=== PATIENT | male | born 1970 | race Caucasian/White ===

== ENCOUNTER → 2019-07-13 | Outpatient (CLI) | payer SELFPAY ==
[2019-07-13 10:06] VITALS: BMI 45.4
[2019-07-13 12:35] LABS: Anion Gap 4 (5-15); BUN 16 mg/dL (7-18); BUN/Creat Ratio 18.1 RATIO (10-20); Chloride 105 mmol/L (98-107); Cholesterol 195 mg/dL (200); Creatinine, Serum 0.88 mg/dL (0.70-1.30); EST Glomerular Filtration Rate 98 mL/min (>60); Est Glom Filt Rate - Afr Amer 118 mL/min (>60); Glucose 139 mg/dL (74-106); High Density Lipoprotein 55 mg/dL; Sodium Level 137 mmol/L (136-145); Thyroid Stim Hormone (TSH) 1.17 uIU/mL (0.358-3.74); Triglycerides 112 mg/dL; Very Low Density Lipoprotein 22 mg/dL (5-40)
[2019-07-13 12:41] LABS: Microalbumin,Random Urine 9.6 mg/L (NO RANGE EST.); Microalbumin:Creatinine Ratio 44.7 mg/g CRE (<30 mg/g CRE)
== END | disposition home or self-care (01) ==
LOC: BIMLAB 10:13
PROVIDERS: PCP Internal Medicine; Referring Provider Nurse Practitioner Family; Visit Provider Nurse Practitioner Family
DX: I10 Essential (primary) hypertension (principal); E11.65 Type 2 diabetes mellitus with hyperglycemia
CPT/HCPCS: 36415; 80048; 80061; 82043; 82570; 84443

== ENCOUNTER → 2020-09-21 09:45 | Outpatient (CLI) | payer BC, SELFPAY ==
[2020-09-21 08:25] VITALS: BMI 45.7
[2020-09-21 12:16] LABS: Absolute Lymphocyte Count 1.91 X10^3/uL (0.83-4.51); Basophil# 0.04 X10^3/uL; Basophil% 0.7 % (0-1); Eosinophil# 0.09 X10^3/uL; Eosinophils% 1.6 % (0-5); Hematocrit 41.9 % (40-54); Hemoglobin 14.1 g/dL (13.0-16.5); Lymphocyte # 1.91 X10^3/ul (4.0); Lymphocyte % 34.8 % (19-41); Mean Corp Hgb Conc 33.7 g/dL (32-36); Mean Corpuscular Hgb 29.2 pg (27.0-32.0); Mean Corpuscular Volume 86.7 fL (80-94); Mean Platelet Vol. 10.6 fl (6.2-12.0); Monocyte# 0.46 X10^3/uL; Monocyte% 8.4 % (0-10); NRBC Flagged by Analyzer 0 % (0-5); Neutrophil # 2.96 X10^3/uL (2.7-7.7); Platelet Count 237 K/mm3 (150-450); RBC Distribution Width CV 12.9 % (11.6-14.6); RBC Distribution Width SD 40.3 fl (35.1-43.9); Red Blood Count 4.83 M/mm3 (4.6-6.2); White Blood Count 5.5 K/mm3 (4.4-11.0)
[2020-09-21 12:42] LABS: ALB/GLOB Ratio 0.8 RATIO (0.9-2.4); AST(SGOT) 55 U/L (15-37); Alanine Aminotransfer ALT/SGPT 117 U/L (16-61); Albumin, Serum 3.9 g/dL (3.2-5.0); Alkaline Phosphatase 97 U/L (45-117); Anion Gap 5 (5-15); BUN 18 mg/dL (7-18); BUN/Creat Ratio 20.3 RATIO (10-20); Calcium,Total 9.5 mg/dL (8.5-10.1); Chloride 101 mmol/L (98-107); Cholesterol 191 mg/dL (200); Creatinine, Serum 0.89 mg/dL (0.70-1.30); EST Glomerular Filtration Rate 97 mL/min (>60); Est Glom Filt Rate - Afr Amer 117 mL/min (>60); Globulin 4.8 g/dL (2.2-4.2); Glucose 166 mg/dL (74-106); High Density Lipoprotein 65 mg/dL; Potassium 3.9 mmol/L (3.5-5.1); Protein, Total 8.7 g/dL (6.4-8.2); Sodium Level 134 mmol/L (136-145); Thyroid Stim Hormone (TSH) 1.21 uIU/mL (0.358-3.74); Triglycerides 121 mg/dL; Very Low Density Lipoprotein 24 mg/dL (5-40)
[2020-09-21 13:15] LABS: Microalbumin,Random Urine 34.4 mg/L (NO RANGE EST.)
[2020-09-22 10:34] LABS: Hepatitis C Antibody Non-Reactive (Nonreactive)
== END ==
PROVIDERS: PCP Internal Medicine; Referring Provider Nurse Practitioner Family; Visit Provider Nurse Practitioner Family
DX: E11.9 Type 2 diabetes mellitus without complications (principal); I10 Essential (primary) hypertension; R79.89 Other specified abnormal findings of blood chemistry
CPT/HCPCS: 36415; 80053; 80061; 82043; 82570; 84443; 85025; 86803

== ENCOUNTER → 2020-09-30 08:47 | Outpatient (CLI) | payer BC, SELFPAY ==
[2020-09-21 08:25] VITALS: BMI 45.7
--- NOTE | 2020-09-30 08:52 | US_ITS ---
EXAM: US ABDOMEN LIMITED, RIGHT UPPER QUADRANT CLINICAL INDICATION: elevated lfts TECHNIQUE: Real-time ultrasound of the right upper quadrant with image documentation. This report was created using [employer] report generation technology. COMPARISON: None. FINDINGS: LIVER: Increased echogenicity of the liver is nonspecific but most commonly associated with hepatic steatosis. No hepatic masses. GALLBLADDER: Unremarkable. No shadowing gallstone. No gallbladder wall thickening is demonstrated. No pericholecystic fluid. Negative sonographic Malik''s sign. COMMON BILE DUCT: Unremarkable as visualized. The proximal common bile duct is within normal limits for the patient''s age. PANCREAS: Unremarkable as visualized. No focal abnormality is demonstrated in the pancreas. No pancreatic ductal dilatation. RIGHT KIDNEY: Unremarkable. There is no hydronephrosis. No shadowing calculus. No focal lesion or perinephric collection is demonstrated. US/Liver IMPRESSION: Increased echogenicity of the liver is nonspecific but most commonly associated with hepatic steatosis. Hepatomegaly. Electronically Signed: Alexandr Mercado MD ([place]) at 15:29 EDT , Service support ,
== END ==
PROVIDERS: PCP Nurse Practitioner Family; Referring Provider Nurse Practitioner Family; Visit Provider Nurse Practitioner Family
DX: R79.89 Other specified abnormal findings of blood chemistry (principal)
CPT/HCPCS: 76705

== ENCOUNTER 2020-11-15 17:36 | Emergency (ER) | payer BC, SELFPAY ==
[2020-11-15 17:37] VITALS: BP 171/100; PULSE 84; RESP 16; TEMP 36.3; O2SAT 97; BMI 45.1
--- NOTE | 2020-11-15 18:21 | CT_ITS ---
INDICATION: Right flank pain EXAMINATION: CT Abdomen And Pelvis W/O Contrast Injection TECHNIQUE: Helically acquired images were obtained of the abdomen and pelvis without the use of IV contrast. A radiation dose optimization technique was used for this scan. Oral contrast: None. COMPARISON: None FINDINGS: Evaluation of the solid organs and vascular structures is limited without intravenous contrast. Visualized lung bases: Bibasilar atelectasis. Liver: Markedly diffusely hypodense consistent with fatty liver. Gallbladder: Unremarkable Spleen: Unremarkable Pancreas: Fatty atrophic changes. Adrenal Glands: Unremarkable Kidneys: Unremarkable Vasculature: Mild scattered aortoiliac atherosclerotic calcifications. GI Tract: Scattered diverticula throughout the colon without evidence of inflammation. The appendix is not visualized. Lymphadenopathy: None Peritoneum: No ascites. Bladder: Unremarkable Reproductive organs: Unremarkable Bones/Soft tissues: Mild scattered degenerative changes of the visualized spine. CT/Abdomen/Pelvis without Cont IMPRESSION: No acute abnormalities in the abdomen or pelvis. Severe hepatic steatosis. Diverticulosis. Electronically Signed: Henry Meza MD at 19:04 EDT Tel , Service support ,
--- NOTE | 2020-11-15 18:21 | EDS_ITS ---
HPI History of Present Illness Chief Complaint: Back Onset/Context/Timing Onset: Days (4) Context: Gradual Onset Timing: Continuous Quality: Sharp Location: Lumbar and - (Right flank) Worsened by: improves with - (Cough, sneezing, deep breathing) Relieved by: Nothing Narrative Narrative: Patient presents with right back and flank pain that has been constant for the past 4 days. Patient states it was worse 3 days ago. Patient states it is sharp and stabbing. Patient states pain is over the right lumbar paraspinal area and right flank area. Patient denies any radiation of the pain. Patient denies any bowel or bladder changes. Patient denies any saddle anesthesia. Patient denies any trauma or injury. Patient states his pain is worse with any cough, sneezing, or deep breathing. [facility] Medical History (Updated 11/15/20 @ 20:[address] Fidencio Gerard DO) Diabetes High blood pressure Home Medications multivitamin 1 cap PO DAILY 06/29/19 [History Last Taken Unknown] dulaglutide 1.5 mg/0.5 mL subcutaneous pen injector 1.5 mg SC QWEEK #6 ml 09/21/20 [Rx Last Taken Unknown] lisinopril 20 mg tablet 20 mg PO QDAY #90 tablet 09/21/20 [Rx Last Taken Unknown] metformin 1,000 mg tablet 1,000 mg PO BID #180 tab 09/21/20 [Rx Last Taken Unknown] hydrocodone-acetaminophen 1 tab PO Q6H PRN PRN 3 Days #10 tablet 11/15/20 [Rx Last Taken Unknown] Allergy/AdvReac Type Severity Reaction Status Date / Time Penicillins Allergy Severe anaphylacti Verified 11/15/20 17:37 c Family History (Updated 09/21/20 @ 08:42 by Sherron Allred) Father Diabetes Mother No problems noted. Social History Smoking Status: Never smoker alcohol intake: never substance use type: does not use what type of physical activity do you participate in: walking frequency: 1-2 times per week ROS ROS ED Constitutional Constitutional ED: Denies chills or fever(s) Eyes Eyes: Denies blurry vision or change in vision ENT ENT ED: Denies rhinorrhea or sore throat Cardiovascular Cardiovascular: Denies chest pain or palpitations Respiratory/Chest Respiratory/Chest: Reports cough; Denies dyspnea Gastrointestinal Gastrointestinal: Denies nausea or vomiting Genitourinary Genitourinary ED: Denies dysuria or hematuria Musculoskeletal Musculoskeletal: Reports back pain; Denies neck pain Integumentary Denies abscess or rash Neurologic Neurologic: Denies headache(s) or weakness Allergic/Immunologic Allergic/Immunologic ED: Denies mouth swelling or urticaria EXAM Physical Exam Const Vital Signs: 11/15/20 17:37 Temperature 97.3 F L Temperature Source Temporal Pulse Rate 84 Respiratory Rate 16 Blood Pressure 171/100 H Blood Pressure Mean 123 Pulse Ox 97 Oxygen Delivery Method Room Air Positive well nourished, well developed and obese General Appearance ED: well developed Nutritional Appearance: obese HEENT Reports moist mucous membranes Neck supple and no JVD Resp normal respiratory effort and clear to auscultation bilaterally Cardio regular rate and regular rhythm GI normal to inspection, nondistended, normoactive bowel sounds, soft to palpation and non-tender Back/Spine Back/Spine Narrative: There is tenderness over the right lumbar paraspinal area. There is also right CVA tenderness. Range of motion was slightly limited in all motions of the lumbar spine secondary to pain. Patient ambulates without difficulty. General Back: CVA tenderness right Psych mental status grossly normal MDM MDM MDM Narrative Medical decision making narrative: CBC was essentially within normal limits. Comprehensive metabolic profile was within normal limits. Urinalysis does not show any evidence of urinary tract infection. CT scan of the abdomen and pelvis was obtained. There is diverticulosis but no evidence of diverticulitis. There is no renal calculus noted. There is no acute intra-abdominal process. This was interpreted by the radiologist and reviewed by myself. Patient was feeling better on reevaluation. Patient was advised of his findings. Patient was instructed to follow-up with his primary care physician in 5 to 7 days. Patient was given a prescription for a short course of [place]. Patient understood and was agreeable with the plan. All questions were answered. Lab Data Attestation: I reviewed the patient's lab results. Labs: Laboratory Results - last 24 hr 11/15/20 11/15/20 11/15/20 18:35 18:39 18:39 WBC 5.0 RBC 4.13 L Hgb 12.2 L Hct 35.3 L MCV 85.5 MCH 29.5 MCHC 34.6 RDW Std Deviation 40.2 RDW Coeff of [place]ziel 13.2 Plt Count 191 MPV 9.6 Immature Gran % (Auto) 0.800 Neut % (Auto) 53.8 Lymph % (Auto) 34.5 [place] % (Auto) 8.5 Eos % (Auto) 1.8 Baso % (Auto) 0.6 Absolute Neuts (auto) 2.7 Absolute Lymphs (auto) 1.71 Nucleated RBC % 0 Sodium 140 Potassium 3.8 Chloride 105 Carbon Dioxide 31.0 Anion Gap 4 L BUN 11 Creatinine 0.84 Estim Creat Clear Calc 102.92 Est GFR (MDRD) Af Amer 125 Est GFR (MDRD) Non-Af 103 BUN/Creatinine Ratio 13.1 Glucose 93 Calcium 9.0 Total Bilirubin 0.60 AST 39 H ALT 69 H Alkaline Phosphatase 76 Total Protein 8.3 H Albumin 3.6 Globulin 4.7 H Albumin/Globulin Ratio 0.8 L Urine Color Yellow Urine Clarity Clear Urine pH 7.0 Ur Specific [place] 1.010 Urine Protein Negative Urine Glucose (UA) Normal Urine Ketones Negative Urine Occult Blood Negative Urine Nitrite Negative Urine Bilirubin Negative Urine Urobilinogen Normal Ur Leukocyte Esterase Negative Urine RBC 0 SEEN Urine WBC 0-5 SEEN Ur Squamous Epith Cells 0 SEEN Urine Bacteria 0 SEEN Urine Mucus 0 SEEN Radiography Diagnostic Testing: Radiology Impression Abdomen/Pelvis CT 11/15/20 18:21 IMPRESSION: No acute abnormalities in the abdomen or pelvis. Severe hepatic steatosis. Diverticulosis. Electronically Signed: Henry Meza MD at 19:04 EDT Tel , Service support , Discharge Plan Triage Chief Complaint: Back ED Provider: Fidencio Gerard Dx/Rx/DC Orders Clinical Impression: Acute right flank pain Instructions: ED Flank Pain, Uncertain Cause Prescriptions: New hydrocodone-acetaminophen [hydrocodone-acetaminophen] 1 TABLET tablet 1 tab PO Q6H PRN PRN (Reason: Pain) 3 Days Qty: 10 RF: 0 No Action multivitamin capsule 1 cap PO DAILY RF: 0 lisinopril 20 mg tablet 20 mg PO QDAY Qty: 90 RF: 1 metformin 1,000 mg tablet 1,000 mg PO BID Qty: 180 RF: 1 Trulicity 1.5 mg/0.5 mL pen injector 1.5 mg SC QWEEK Qty: 6 RF: 1 Primary Care Provider: Ang Epps NP Referrals: Ang Epps NP, [facility] [Primary Care Provider] - 3-5 Days Disposition Disposition: Home, self care Discharge Date/Time: 11/15/20 20:18
[2020-11-15 18:39] LABS: Bacteria 0 SEEN /hpf (None Seen); Mucous, Urine 0 SEEN /hpf (<or=2+); Red Blood Cells-Urine 0 SEEN /hpf (0-5); Squamous Epithelial Cells - UA 0 SEEN /hpf (0-5)
[2020-11-15 18:41] LABS: Color, Urine Yellow (Yellow); Glucose, Dipstick Normal (Normal); Ketone-Dipstick Negative (Negative); Leukocyte Esterase-Dipstick Negative /ul (Negative); Nitrite-Dipstick Negative (Negative); Occult Blood-Urine Negative /ul (Negative); Protein-Dipstick Negative (Negative); Urine Bilirubin Dipstick Negative (Negative); Urine Clarity Clear (Clear); Urine Urobilinogen Normal (Normal)
[2020-11-15 19:03] LABS: Absolute Lymphocyte Count 1.71 X10^3/uL (0.83-4.51); Absolute Neutrophil Count 2.7 X10^3/uL (2.0-7.7); Basophil# 0.03 X10^3/uL; Basophil% 0.6 % (0-1); Eosinophil# 0.09 X10^3/uL; Eosinophils% 1.8 % (0-5); Hematocrit 35.3 % (40-54); Hemoglobin 12.2 g/dL (13.0-16.5); Lymphocyte # 1.71 X10^3/ul (0.83-4.51); Lymphocyte % 34.5 % (19-41); Mean Corp Hgb Conc 34.6 g/dL (32-36); Mean Corpuscular Hgb 29.5 pg (27.0-32.0); Mean Corpuscular Volume 85.5 fL (80-94); Mean Platelet Vol. 9.6 fl (6.2-12.0); Monocyte# 0.42 X10^3/uL; Monocyte% 8.5 % (0-10); NRBC Flagged by Analyzer 0 % (0-5); Neutrophil # 2.67 X10^3/uL (2.7-7.7); Neutrophil % 53.8 % (47-70); Platelet Count 191 K/mm3 (150-450); RBC Distribution Width CV 13.2 % (11.6-14.6); RBC Distribution Width SD 40.2 fl (35.1-43.9); Red Blood Count 4.13 M/mm3 (4.6-6.2)
[2020-11-15 19:07] LABS: ALB/GLOB Ratio 0.8 RATIO (0.9-2.4); AST(SGOT) 39 U/L (15-37); Alanine Aminotransfer ALT/SGPT 69 U/L (16-61); Albumin, Serum 3.6 g/dL (3.2-5.0); Alkaline Phosphatase 76 U/L (45-117); Anion Gap 4 (5-15); BUN 11 mg/dL (7-18); BUN/Creat Ratio 13.1 RATIO (10-20); Chloride 105 mmol/L (98-107); Creatinine, Serum 0.84 mg/dL (0.70-1.30); EST Glomerular Filtration Rate 103 mL/min (>60); Est Glom Filt Rate - Afr Amer 125 mL/min (>60); Estimated Creatinine Clearance 102.92 ml/min; Globulin 4.7 g/dL (2.2-4.2); Glucose 93 mg/dL (74-106); Potassium 3.8 mmol/L (3.5-5.1); Protein, Total 8.3 g/dL (6.4-8.2); Sodium Level 140 mmol/L (136-145)
[2020-11-15 19:18] LABS: White Blood Cells 0-5 SEEN /hpf (0-5)
== END 2020-11-15 20:18 | disposition home or self-care (01) ==
PROVIDERS: Emergency Provider Emergency Medicine; PCP Nurse Practitioner Family
DX: R10.9 Unspecified abdominal pain (principal); E11.9 Type 2 diabetes mellitus without complications; I10 Essential (primary) hypertension; E66.9 Obesity, unspecified; Z79.84 Long term (current) use of oral hypoglycemic drugs; Z79.899 Other long term (current) drug therapy
CPT/HCPCS: 74176; 80053; 81001; 85025; 99283; A4216

== ENCOUNTER 2021-03-12 02:11 | Emergency (ER) | payer BC, SELFPAY ==
[2021-03-12 02:12] VITALS: BP 171/105; PULSE 88; RESP 16; TEMP 36.3; O2SAT 100; BMI 42.5
--- NOTE | 2021-03-12 02:26 | CT_ITS ---
We are attempting to reach an attending provider to discuss findings. An addendum with communication details will be sent when the communication is complete. STUDY: CT ABDOMEN AND PELVIS WITH CONTRAST REASON FOR EXAM: Male, 50 years old. Diverticulitis RADIATION DOSAGE (If Supplied By Facility): CTDIvol = ( 22.07 ) mGy, DLP = ( 1239.20 ) mGycm TECHNIQUE: Transaxial images were obtained from the dome of the diaphragm to the symphysis pubis without oral contrast. IV 100mL Isovue-370 was administered. Sagittal and coronal images were reconstructed. Individualized dose optimization techniques were used for this CT. COMPARISON: November 15, 2020 CT abdomen and pelvis FINDINGS: The visualized lung bases are unremarkable. The visualized portions of the heart are within normal limits. There is decreased attenuation of the liver consistent with steatosis. Normal gallbladder and extrahepatic biliary system. Normal spleen. Normal pancreas. Normal bilateral adrenal glands. Normal right kidney. Normal left kidney. Normal visualized stomach. Normal small intestine. There is moderate stool in the colon. There is diverticulosis without visualized diverticulitis. The appendix is visualized and appears normal. Normal abdominal aorta. Normal inferior vena cava. There few nonspecific subcentimeter mesenteric and peritoneal lymphadenopathy Normal urinary bladder. Normal visualized prostate gland. Normal abdominal wall. There is an abnormal focal erosive appearing lesion within the T11 vertebral body occupying the three fourths of the left side of the vertebral body extending into the left pedicle with an associated soft tissue mass measuring 2.8 x 1.4 cm. There is a suggestion this may be extending into the left neural foramen and canal. There is a subtle focus of low attenuation within the L1 vertebral body suggesting the possibility of further lytic lesions. There are also subtle foci within the pedicles and transverse process. There are age-indeterminate prior fractures of right transverse process at L2 and L3. There is subtle low attenuation within the ileum. There is degenerative change in the thoracic spine. At L1-L2 L2-3 L3-L4 and especially L4-L5 there is moderate neural foramina narrowing. At L4-L5 there is moderate to severe central stenosis. L5-S1 there is moderate neural foraminal narrowing. CT/Abdomen/Pelvis W IV Cont ONLY IMPRESSION: Abnormal lytic lesion within the T11 vertebral body extending into the pedicle with an associated soft tissue mass. There is likely significant left neural foraminal narrowing possible central stenosis. This is very concerning for a focus of metastatic disease. There are focal areas of patchy low attenuation within the L1 vertebral body and also seen within the spinous process at the level of L3. There is indeterminate subtle foci within the ileum. There is multilevel degenerative disc disease. Recommend further evaluation with MRI of the thoracic and lumbar spine with gadolinium.. Hepatic steatosis. Nonspecific bowel gas pattern. Minimal diverticulosis no diverticulitis. Electronically Signed: No Morrow MD at 6:26 EDT Tel , Service support ,
--- NOTE | 2021-03-12 02:28 | EDS_ITS ---
HPI History of Present Illness Chief Complaint: Abd Pain Informant: patient Narrative Narrative: 50-year-old male presents to the emergency department with left lower quadrant abdominal pain. This has been present for 1 week. He tells me he went to the urgent care yesterday believing that he had a abdominal muscle strain and was given a muscle relaxant. He states that that did not help. He states that he now believes he has diverticulitis as he had diverticulitis before. He has never had a colonoscopy. He did not have any perforation or abscess formation on his prior diverticulitis admission. He denies any current fevers. He notes decreased bowel movements. [facility] Medical History (Updated 03/12/21 @ 07:[address] Boni Jarrett DO) Diabetes High blood pressure Home Medications multivitamin 1 cap PO DAILY 06/29/19 [History Last Taken Unknown] dulaglutide 1.5 mg/0.5 mL subcutaneous pen injector 1.5 mg SC QWEEK #6 ml 12/21/20 [Rx Last Taken Unknown] lisinopril 20 mg tablet 20 mg PO QDAY #90 tablet 12/21/20 [Rx Last Taken Unknown] metformin 1,000 mg tablet 1,000 mg PO BID #180 tab 12/21/20 [Rx Last Taken Unknown] chlorzoxazone 500 mg tablet 500 mg PO TID PRN #10 tab 03/11/21 [Rx Last Taken Unknown] Allergy/AdvReac Type Severity Reaction Status Date / Time Penicillins Allergy Severe anaphylacti Verified 03/11/21 10:55 c Family History Father Diabetes Mother No problems noted. Social History Smoking Status: Never smoker alcohol intake: never substance use type: does not use what type of physical activity do you participate in: walking frequency: 1-2 times per week ROS ROS ED Constitutional Constitutional ED: Denies chills or weight loss Eyes Eyes: Denies change in vision or diplopia ENT ENT ED: Denies ear pain, rhinorrhea or sore throat Cardiovascular Cardiovascular: Denies chest pain, orthopnea, palpitations or racing heartbeat Respiratory/Chest Respiratory/Chest: Denies cough, dyspnea or orthopnea Gastrointestinal Gastrointestinal: Reports abdominal pain; Denies diarrhea, nausea or vomiting Genitourinary Genitourinary ED: Denies dysuria, hematuria or urinary frequency Musculoskeletal Musculoskeletal: Denies arthralgias or myalgias Integumentary Denies abscess or rash Neurologic Neurologic: Denies headache(s) or weakness Psychiatric Psychiatric: Denies anxiety, depression, suicidal ideation or suicidal thoughts Endocrine Endocrinology: Denies polydipsia, polyphagia or polyuria Allergic/Immunologic Allergic/Immunologic ED: Denies mouth swelling, tongue swelling or urticaria EXAM Physical Exam Const Vital Signs: 03/12/21 02:12 Temperature 97.4 F L Temperature Source Temporal Pulse Rate 88 Respiratory Rate 16 Blood Pressure 171/105 H Blood Pressure Mean 127 Pulse Ox 100 Positive well nourished, well developed and obese General Appearance ED: well developed Nutritional Appearance: obese HEENT Reports normocephalic, head/scalp atraumatic and moist mucous membranes Eyes PERRL and EOMs intact bilaterally Neck no lymphadenopathy, supple and no JVD Resp normal respiratory effort and clear to auscultation bilaterally Cardio regular rate, regular rhythm and no murmurs GI Palpation: soft and tender LLQ Back/Spine no CVA tenderness and normal ROM Extremity normal to inspection General Extremety ED: Negative for edema General Extremity: Negative for edema Neuro oriented x3 and CN's II-XII intact bilaterally Sensorium / Orientation: alert Motor Exam: strength 5/5 throughout Psych mental status grossly normal Mood & Affect: Negative for depressed or tearful Skin no rashes or lesions noted and no wounds MDM MDM MDM Narrative Medical decision making narrative: Basic blood work is obtained and negative. Urinalysis is essentially negative. CT of the abdomen pelvis was obtained to evaluate for the possibility of diverticulitis. Unfortunately this demonstrated a large lytic lesion at T11 with left neuroforaminal stenosis. Concerning for focus of metastatic disease. There is also some patchy low attenuation with in the L1 vertebral body and within the spinous process of L3. I spoke with the patient and I spoke with MRI and patient will undergo MRI this morning. I will speak with his on-call doctor and refer him onto oncology. Lab Data Attestation: I reviewed the patient's lab results. Labs: Laboratory Results - last 24 hr 03/12/21 03/12/21 03/12/21 02:30 02:30 02:35 WBC 5.1 RBC 4.26 L Hgb 12.7 L Hct 36.7 L MCV 86.2 MCH 29.8 MCHC 34.6 RDW Std Deviation 39.9 RDW Coeff of Uziel 12.9 Plt Count 222 MPV 9.7 Immature Gran % (Auto) 0.400 Neut % (Auto) 52.1 Lymph % (Auto) 37.2 [place] % (Auto) 8.3 Eos % (Auto) 1.6 Baso % (Auto) 0.4 Absolute Neuts (auto) 2.6 Absolute Lymphs (auto) 1.88 Nucleated RBC % 0 Sodium 136 Potassium 4.1 Chloride 104 Carbon Dioxide 25.0 Anion Gap 7 BUN 18 Creatinine 0.92 Estim Creat Clear Calc 93.97 Est GFR (MDRD) Af Amer 111 Est GFR (MDRD) Non-Af 92 BUN/Creatinine Ratio 19.5 Glucose 99 Calcium 9.3 Urine Color Yellow Urine Clarity Clear Urine pH 5.0 Ur Specific [place] 1.020 Urine Protein 30 H Urine Glucose (UA) Normal Urine Ketones Negative Urine Occult Blood Negative Urine Nitrite Negative Urine Bilirubin Negative Urine Urobilinogen Normal Ur Leukocyte Esterase Negative Urine RBC 0 SEEN Urine WBC 0 SEEN Ur Squamous Epith Cells 0 SEEN Urine Bacteria 1+ Urine Mucus 0 SEEN Radiography Diagnostic Testing: Radiology Impression Abdomen/Pelvis CT 03/12/21 02:26 IMPRESSION: Abnormal lytic lesion within the T11 vertebral body extending into the pedicle with an associated soft tissue mass. There is likely significant left neural foraminal narrowing possible central stenosis. This is very concerning for a focus of metastatic disease. There are focal areas of patchy low attenuation within the L1 vertebral body and also seen within the spinous process at the level of L3. There is indeterminate subtle foci within the ileum. There is multilevel degenerative disc disease. Recommend further evaluation with MRI of the thoracic and lumbar spine with gadolinium.. Hepatic steatosis. Nonspecific bowel gas pattern. Minimal diverticulosis no diverticulitis. Electronically Signed: No Morrow MD at 6:26 EDT Tel , Service support , ADDENDUM: 03/12/21 0646 IMPRESSION: Abnormal lytic lesion within the T11 vertebral body extending into the pedicle with an associated soft tissue mass. There is likely significant left neural foraminal narrowing possible central stenosis. This is very concerning for a focus of metastatic disease. There are focal areas of patchy low attenuation within the L1 vertebral body and also seen within the spinous process at the level of L3. There is indeterminate subtle foci within the ileum. There is multilevel degenerative disc disease. Recommend further evaluation with MRI of the thoracic and lumbar spine with gadolinium.. Hepatic steatosis. Nonspecific bowel gas pattern. Minimal diverticulosis no diverticulitis. N.B. : The above Results were Read Back by No Morrow MD to Boni Jarrett;[phone], and understanding confirmed on 03/12/2021 06:39:08 (ET). 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
[2021-03-12 02:41] LABS: Absolute Lymphocyte Count 1.88 X10^3/uL (0.83-4.51); Absolute Neutrophil Count 2.6 X10^3/uL (2.0-7.7); Basophil# 0.02 X10^3/uL; Basophil% 0.4 % (0-1); Eosinophil# 0.08 X10^3/uL; Eosinophils% 1.6 % (0-5); Hematocrit 36.7 % (40-54); Hemoglobin 12.7 g/dL (13.0-16.5); Lymphocyte # 1.88 X10^3/ul (0.83-4.51); Lymphocyte % 37.2 % (19-41); Mean Corp Hgb Conc 34.6 g/dL (32-36); Mean Corpuscular Hgb 29.8 pg (27.0-32.0); Mean Corpuscular Volume 86.2 fL (80-94); Mean Platelet Vol. 9.7 fl (6.2-12.0); Monocyte# 0.42 X10^3/uL; Monocyte% 8.3 % (0-10); NRBC Flagged by Analyzer 0 % (0-5); Neutrophil # 2.64 X10^3/uL (2.7-7.7); Neutrophil % 52.1 % (47-70); Platelet Count 222 K/mm3 (150-450); RBC Distribution Width CV 12.9 % (11.6-14.6); RBC Distribution Width SD 39.9 fl (35.1-43.9); Red Blood Count 4.26 M/mm3 (4.6-6.2); White Blood Count 5.1 K/mm3 (4.4-11.0)
[2021-03-12 03:45] LABS: Anion Gap 7 (5-15); BUN 18 mg/dL (7-18); BUN/Creat Ratio 19.5 RATIO (10-20); Calcium,Total 9.3 mg/dL (8.5-10.1); Chloride 104 mmol/L (98-107); Creatinine, Serum 0.92 mg/dL (0.70-1.30); EST Glomerular Filtration Rate 92 mL/min (>60); Est Glom Filt Rate - Afr Amer 111 mL/min (>60); Estimated Creatinine Clearance 93.97 ml/min; Glucose 99 mg/dL (74-106); Potassium 4.1 mmol/L (3.5-5.1); Sodium Level 136 mmol/L (136-145)
[2021-03-12 04:06] LABS: Mucous, Urine 0 SEEN /hpf (<or=2+); Red Blood Cells-Urine 0 SEEN /hpf (0-5); Squamous Epithelial Cells - UA 0 SEEN /hpf (0-5); White Blood Cells 0 SEEN /hpf (0-5)
[2021-03-12 04:09] LABS: Color, Urine Yellow (Yellow); Glucose, Dipstick Normal (Normal); Ketone-Dipstick Negative (Negative); Leukocyte Esterase-Dipstick Negative /ul (Negative); Nitrite-Dipstick Negative (Negative); Occult Blood-Urine Negative /ul (Negative); Protein-Dipstick 30 mg/dl (Negative); Urine Bilirubin Dipstick Negative (Negative); Urine Clarity Clear (Clear); Urine Urobilinogen Normal (Normal)
[2021-03-12 04:16] LABS: Bacteria 1+ /hpf (None Seen)
--- NOTE | 2021-03-12 07:07 | MRI_ITS ---
We are attempting to reach an attending provider to discuss findings. An addendum with communication details will be sent when the communication is complete. STUDY: MRI THORACIC AND LUMBAR SPINE WITH AND WITHOUT CONTRAST REASON FOR EXAM: Male, 50 years old. T11 mass -- left sided pain, no radiculopathy, F/U CT TECHNIQUE: dotarem 25ml IV was administered for the contrast portion of the examination. Standard precontrast thoracic and lumbar spine images were obtained. COMPARISON: CT scan dated 03/12/2021. FINDINGS: Thoracic spine: Multiple enhancing abnormal T1 and T2 bone lesions predominating at the T11 vertebral body (sagittal image 8 series 5). Additional slightly more prominent enhancing bone lesions involving the T1 vertebral body and T4/T5 posterior elements. Left sided enhancing epidural tumor at the T10 and T11 levels with moderate canal narrowing (axial images 9 through 12 series 7 and sagittal image 7 series 9). Region of epidural tumor measures approximately 4.1 cm x 1 cm x 1.4 cm. No abnormal cord signal. Conus medullaris terminates normally at the L1 level. Thoracic kyphosis maintained. No significant scoliosis. No spondylolisthesis. Multilevel intervertebral disc disease with right paracentral protrusion at T3-4. No significant central canal narrowing secondary to intervertebral disc disease. Severe left-sided T10-11 neural foraminal narrowing with impingement (sagittal image 6 series 4). Paraspinal muscle atrophy. Normal aorta. Normal visualized lungs given MRI technique. Lumbar spine: Multiple enhancing lumbar and sacral bone lesions most pronounced at the right hemisacrum (sagittal image 2 series 2 and axial image 1 series 3). Region of sacral bone tumor measures approximately 3.5 cm x 2.4 cm x 6.4 cm. Lumbar lordosis maintained. No significant scoliosis. Multilevel intervertebral disc disease with central canal narrowing most severe at L4-5. Multilevel neural foraminal narrowing with contact of the left exiting L5 nerve root. Multilevel mild/moderate endplate spondylosis most severe at L4-5. Multilevel mild/moderate facet joint arthrosis predominating at the lower lumbar spine. Multilevel lateral recess narrowing with contact of the descending nerve roots on the left at L4-5 and L5-S1. Normal paraspinal muscles. Sacrum intact. Normal aorta. MRI/Spine Thoracic W/WO Contrast IMPRESSION: Multiple thoracic destructive bone lesions predominating at the T11 vertebral body with adjacent left-sided epidural tumor contributing to lateral recess and neural foraminal narrowing (suspected metastatic disease) Large right enhancing destructive hemipelvis bone lesion Multiple small enhancing lumbar destructive bone lesions Multilevel degenerative lumbar spine neural foraminal narrowing Multilevel degenerative thoracic and lumbar intervertebral disc disease with central canal narrowing Multilevel osteoarthritis, as above Electronically Signed: Fidencio Manzano DO at 11:57 EDT Tel , Service support ,
[2021-03-12] MEDS: Ondansetron 4 MG/2 ML Vial IV ×2 (08:33→10:30)
[2021-03-12] MEDS: Morphine 4 MG/ML Syringe IV (08:34)
[2021-03-12 08:39] VITALS: BP 140/90; PULSE 80; RESP 16; O2SAT 97
[2021-03-12 09:23] VITALS: BP 126/91; PULSE 80; RESP 14; O2SAT 100
[2021-03-12] MEDS: LORazepam 2 MG/ML Syringe 0.5 MG IV (10:30)
[2021-03-12 11:34] VITALS: BP 130/92; PULSE 76; RESP 14; O2SAT 100
[2021-03-12 12:43] VITALS: BP 129/78; PULSE 85; RESP 16; O2SAT 96
== END 2021-03-12 12:46 | disposition home or self-care (01) ==
LOC: ED 03:40
PROVIDERS: Emergency Provider Emergency Medicine; PCP Nurse Practitioner Family
DX: C79.51 Secondary malignant neoplasm of bone (principal); C80.1 Malignant (primary) neoplasm, unspecified; E11.9 Type 2 diabetes mellitus without complications; I10 Essential (primary) hypertension; E66.9 Obesity, unspecified; Z79.84 Long term (current) use of oral hypoglycemic drugs; Z79.899 Other long term (current) drug therapy
CPT/HCPCS: 72157; 72158; 74177; 80048; 81001; 85025; 96374; 96375; 96376; 99285; A9575; J7050; Q9967; A4216; J2405

== ENCOUNTER → 2021-03-16 07:48 | Outpatient (CLI) | payer BC, SELFPAY ==
[2021-03-16] VITALS (10 sets, daily range): BP systolic 107–138; BP diastolic 76–92; PULSE 69–84; RESP 12–23; TEMP 36.9; O2SAT 96–99; BMI 42.5
--- NOTE | 2021-03-16 | ASPIGT_PTH ---
PATIENT: TIM JONES LOC: CT U#:[id number] AGE/SX: 55/M ROOM: RE03/16/[address]: Dr. 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 VERA:sean 03/20/2021 COMMENT The specimen is evaluated at the time of biopsy by Dr. Rosales. Immediate Evaluation = Lymphocytes and plasma cells noted. Immunohistochemistry ([id number]) supports the above diagnosis. Flow cytometry study from [employer] shows kappa-restricted plasma cell neoplasm (11% of total). There is no evidence of lymphoproliferative disorder. The complete report is viewable in patient?s EMR. Correlation with clinical, radiologic findings and appropriate follow up are necessary. Case has been reviewed in consultation with Dr. Teresa who concurs with the above diagnosis. IDC:AM MICROSCOPIC DESCRIPTION Slides are reviewed. GROSS DESCRIPTION Received in fixative is one container labeled with the patient's name and designated lesion next to T11. The specimen consists of multiple irregular fragments of kumar soft tissue that in aggregate measure 1 x 0.1 x <0.1 cm. The specimen is totally submitted in one cassette. Two touch imprints are prepared. A core is submitted for flow cytometry studies. Filtered formalin is submitted for cell block preparation in cassette?2. / VERA:sean 03/19/2021 TC:0 CPT: 76182, 50487
--- NOTE | 2021-03-16 | IMM_PTH ---
PATIENT: TIM JONES LOC: CT U#:[id number] AGE/SX: 55/M ROOM: RE03/16/[address]: Dr. Solo Yanez MD : 1970 BED: DIS: SPEC #: [id number] RECD: 03/19/21 14:06 STATUS: STEFANY REQ #: [id number] BRANDEN: 03/16/21 00:[address]: Solo Yanez DEPT: IMMUNOHISTOCHEMISTRY RECD BY: Nicolette Somers ENTERED: 03/19/21 14:08 SP TYPE: IMMUNO OTHR DR: Ang Epps, DYE TUB OPERATOR-Derek Tissues: Vertebra, NOS Procedures: BCL-2 (add) BCL-6 (add) CD10 (add) CD138 (add) CD20 (add) CD23 (add) CD43 (add) CD45 (add) CD5 (add) CD79A (add) CYCLIN (add) KAPPA (add) KI-67 (add) LAMBDA (add) CD3 (initial) PHYSICIAN & [address] [address] SPECIMEN INFORMATION: Tissue Source: Lesion next to T11 Clinical Info: Lesion next to T11 Specimen Number: [id number] CPT code: 57548, 38048 x14 METHODOLOGY: Deparaffinized sections of prefer/formalin-fixed tissue or PAP/DQ stained slides are incubated with monoclonal/polyclonal antibodies/oligonucleotide probes. Localization is made via biotin free immunoperoxidase method. Appropriate controls are performed and reacted as expected. Results on target cell population are indicated in the following table: RESULTS: ANTIBODY / CLONE RESULT CD3 (PS1) negative * CD5 (SP10) negative * CD10 (56C6) negative CD20 (L26) negative * CD23 (1B12) negative CD43 (L60) positive CD45 (RP2/18) negative * CD79a (11E3) negative * CD138 (B-A38) positive BCL-2 (bcl-2/100/D5) positive BCL-6 (GS723A/A8) negative [place] D1/BCL-1 (SP4) negative [place] (polyclonal) positive Lambda (polyclonal) negative Ki-67 (30-9) positive, moderate *?Positive in background lymphocytosis. These tests were developed and their performance characteristics determined by [facility]. They may not have been cleared or approved by the U.S. Food and Drug Administration. The FDA has determined that such clearance or approval is not necessary. The above immunohistochemical/dualISH markers are ordered and reviewed by the Pathologist. 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 See comment. VERA:sean 03/20/2021 Comment: A few lymphocytes are also noted, polytypic in nature. This case has been reviewed in consultation with Dr. Teresa who concurs with the above diagnosis.
--- NOTE | 2021-03-16 08:00 | CT_ITS ---
PROCEDURE: CT guided biopsy of the T11 vertebrae and left paraspinal soft tissue. DATE OF EXAMINATION: 03/16/2021. INDICATION: Male, 50 years old. Destruction of the T11 vertebrae. PHYSICIAN: Dr. JONAH HARRISON CONSENT: The risks, benefits and alternatives to the procedure were explained to the patient, and the patient agreed to the procedure and signed the consent. SEDATION: Conscious sedation was obtained. The patient received 3 mg of VERSED and 75 mcg of FENTANYL intravenously. Conscious sedation was started at 9:06 AM and terminated at 936 the patient was independently monitored by the department nurse. STERILE BARRIER TECHNIQUE: The following sterile barrier precautions were used during the procedure: hand hygiene; use of 2% chlorhexidine aseptic; use of a cap, mask, sterile gown, sterile gloves, sterile full body drape, and a large sterile sheet. PROCEDURE/TECHNIQUE: (All elements of maximal sterile barrier technique followed, including US elements as applicable) The risks, benefits, and alternatives to the procedure were explained to patient, and the patient agreed to the procedure and signed a consent form for the procedure. A timeout was performed to confirm the patient''s identity, the type of procedure, to be performed and the site of entry. The patient was in the prone position. The overlying skin was prepped and draped in the usual sterile fashion. An 18-gauge core biopsy needle was placed to the left side of the T11 vertebrae and left paraspinal soft tissue. 7 core biopsies were obtained. The patient tolerated the procedure well. CT/Biopsy/Inj or Needle Placement IMPRESSION: CT guided percutaneous biopsy of the left side of the T11 vertebrae and the left paravertebral soft tissues. Conscious sedation protocol was followed. Electronically Signed: Piotr Prasad MD at 10:13 EDT , Service support ,
[2021-03-16 08:16] LABS: International Normalized Ratio 1.1; Prothrombin Time (Protime)PT. 13.6 SECONDS (11.7-14.9)
[2021-03-16 08:17] LABS: Partial Thromboplast Time 30.9 Seconds (24.1-36.2)
[2021-03-16] MEDS: Midazolam 2 MG/2 ML Syringe IV (09:06)
[2021-03-16] MEDS: fentaNYL 100 MCG/2 ML Ampul IV (09:06)
[2021-03-16] MEDS: Lidocaine 2% (20 ml mdv) 20 ML Vial INFILT (09:10)
--- NOTE | 2021-03-20 16:30 | PET_ITS ---
EXAMINATION: FDG PET-CT - Head to Toe INDICATIONS: A 50-year-old male with history of multiple myeloma presenting for initial staging examination. COMPARISON EXAMINATION: None available TECHNIQUE: Following the intravenous administration of 17.14 mCi of F-18 deoxyglucose via the right antecubital fossa, multiplanar image acquisitions of the head, neck, chest, abdomen and pelvis, lower extremities to the level of the bilateral feet, obtained at one hour post radiopharmaceutical administration contemporaneously interpreted with the current CT of the head, neck, chest, abdomen and pelvis, lower extremities to the level of the bilateral feet, dated 03/20/21 via coregistration reveals: BLOOD GLUCOSE LEVEL:?? 100 mg/dl?HEIGHT:?68 inches?WEIGHT: 280 lbs. FINDINGS: 1. Increased radiopharmaceutical concentration is defined in the distal left clavicle, the eleventh and sixth thoracic vertebrae, second cervical vertebra, bilateral proximal-mid femoral diaphyses, the right proximal and left distal humeral diaphysis, the right sacral ala generating a calculated maximal standard uptake value of 5.3. Corresponding lytic changes are noted in multiple analogous locations. There is visualized trauma-fracture involving the left clavicle. 2. Normal physiologic distribution of the radiopharmaceutical is apparent in the hepatic (2.7) and splenic parenchyma, both renal units, bladder and visualized intestinal tract. Symmetric glucose metabolism is evident in the occipital, frontal, parietal and temporal lobes of the cerebral cortex, as well as normal visualization of the basal ganglia and cerebellar hemispheres. Pertinent CT findings are as follows: CHEST: There are no parenchymal densities-nodules defined in the right and left hemithorax with discernible increased FDG concentration. Bilateral subcentimeter axillary soft tissue densities with fatty hilus are ametabolic. ABDOMEN AND PELVIS: Right and left inguinal soft tissue densities demonstrate no evidence of quantitatively significant increased FDG distribution. There is borderline fatty metamorphosis-steatosis defined in the hepatic parenchyma. SKELETAL: Scattered primarily lytic changes are noted in multiple locations with varying degrees of quantitatively significant increased FDG uptake. A left clavicular fracture is demonstrated with significant FDG uptake previously described, most consistent with probable pathologic fracture. PET/PET/CT Tumor Base -Thigh Init IMPRESSION: 1. ABNORMAL EXAMINATION INDICATIVE OF MALIGNANT VIABLE NEOPLASM. 2. Increased FDG concentration observed in the appendicular and axial skeletal structures fulfills quantitative criteria for viable osseous neoplasm. (Ramses, et al, Clinical Nuclear Medicine, 29:161, 2004). 3. Facilitated uptake observed in the left clavicle likely represents a component of pathologic fracture. Electronic Signature Stevenson Amezcua D.O. Accurate Quantification of SUVs for this report are calculated using the exclusive [employer], (U.S. Patent No. [id number]). Standardization and correction of the FDG SUV metric exclusively available with [employer] intellectual property, allow for vendor non-specific objective quantitative sequential FDG PET-CT comparison and otherwise unobtainable optimization of the sensitivity and specificity of the examination. Electronically Signed: Stevenson Amezcua DO at 12:26 EDT Tel , Service support ,
== END | disposition home or self-care (01) ==
PROVIDERS: PCP Nurse Practitioner Family; Referring Provider Internal Medicine Medical Oncology; Visit Provider Internal Medicine Medical Oncology
DX: G95.9 Disease of spinal cord, unspecified (principal)
CPT/HCPCS: 20206; 36415; 77012; 85610; 85730; 88172; 88305; 88313; 88341; 88342; 99156; 99157; J7040; A4216

== ENCOUNTER 2021-03-17 10:03 | Emergency (ER) | payer BC, SELFPAY ==
[2021-03-17 10:04] VITALS: BP 146/94; PULSE 77; RESP 16; TEMP 36.2; O2SAT 95; BMI 42.3
--- NOTE | 2021-03-17 10:14 | EX.ED.UPPERE ---
HPI History of Present Illness Chief Complaint: Upper Extremity Injury Detail of Chief Complaint: Pain and swelling to left clavicle Informant: patient Narrative Narrative: Patient presents to the emergency department stating that he thinks he may have broken his clavicle. 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 Patient yesterday also had a CT scan and biopsy for suspected multiple myeloma. He is being treated by Dr. Yanez. Patient had a hard time sleeping last night because of the pain. Patient did take 2 oxycodone this morning. PFSH PFS Medical History Chronic lumbar pain Diabetes High blood pressure Home Medications multivitamin 1 cap PO DAILY 06/29/19 [History Last Taken Unknown] dulaglutide 1.5 mg/0.5 mL subcutaneous pen injector 1.5 mg SC QWEEK #6 ml 12/21/20 [Rx Last Taken Unknown] lisinopril 20 mg tablet 20 mg PO QDAY #90 tablet 12/21/20 [Rx Last Taken Unknown] metformin 1,000 mg tablet 1,000 mg PO BID #180 tab 12/21/20 [Rx Last Taken Unknown] oxycodone-acetaminophen 1 tab PO Q6H PRN PRN 5 Days #20 tablet 03/12/21 [Rx Last Taken 03/17/21] lidocaine 5 % topical patch 1 patch TOPICAL DAILY #30 ea 03/13/21 [Rx Last Taken Unknown] lorazepam 1 mg tablet 1 mg PO DAILY PRN #1 tab 03/15/21 [Rx Last Taken Unknown] oxycodone-acetaminophen 1 tab PO Q6H PRN PRN 5 Days #20 tablet 03/17/21 [Rx Last Taken Unknown] Allergy/AdvReac Type Severity Reaction Status Date / Time Penicillins Allergy Severe anaphylacti Verified 03/17/21 10:07 c Family History Father Diabetes Mother No problems noted. Social History Smoking Status: Never smoker Electronic Cigarette Use: not used second hand exposure: No alcohol intake: never substance use type: does not use what type of physical activity do you participate in: walking frequency: 1-2 times per week ROS ROS ED Constitutional Constitutional ED: Reports systems reviewed and no addt'l complaints, except as documented; Denies body ache(s), change in weight or chills Eyes Eyes: Denies acute decrease in peripheral vision, change in vision, double vision or loss of vision ENT ENT ED: Reports none; Denies ear pain, lip swelling, loss taste/smell, neck pain, otalgia or sore throat Cardiovascular Cardiovascular: Reports none; Denies abdominal pain, chest pain with activity, leg edema, lightheadedness, palpitations, rapid heart rate or syncope Respiratory/Chest Respiratory/Chest: Reports none; Denies change in mental status, dry cough, dyspnea, hemoptysis, shortness of breath at rest or shortness of breath with exertion Gastrointestinal Gastrointestinal: Reports none; Denies abdominal pain, change in stool character, diarrhea, hematemesis, hematochezia, melena, rectal bleeding or vomiting Genitourinary Genitourinary ED: Reports none; Denies abdominal discomfort, anuria, dysuria, genital pain or polyuria Musculoskeletal Musculoskeletal: Reports none and other Details: Left shoulder pain ; Denies arthralgias, back pain, difficulty walking, extremity pain, muscle weakness or myalgias Integumentary Reports none; Denies abscess or rash Neurologic Neurologic: Reports none; Denies abnormal gait, confusion, focal weakness, frequent falls, headache(s), loss of vision, numbness, paresthesias, radicular pain, vertigo or weakness Psychiatric Psychiatric: Reports systems reviewed and no addt'l complaints, except as documented and none; Denies behavioral changes, confusion, difficulty concentrating, hallucinations, suicidal ideation, tactile hallucinations or visual hallucinations Endocrine Endocrinology: Denies none, cold intolerance, excessive sweating, fatigue or heat intolerance Hematologic/Lymphatic Hematologic/Lymphatic: Reports none; Denies anemia, easy bleeding or easy bruising Allergic/Immunologic Allergic/Immunologic ED: Denies as per HPI, none, lip swelling, mouth swelling, throat swelling, tongue swelling or hives EXAM Physical Exam Const Vital Signs: 03/17/21 10:04 Temperature 97.1 F L Temperature Source Temporal Pulse Rate 77 Respiratory Rate 16 Blood Pressure 146/94 H Blood Pressure Mean 111 Pulse Ox 95 Oxygen Delivery Method Room Air Positive well nourished and well developed General Appearance ED: well developed and NAD HEENT Reports TM's clear and moist mucous membranes normocephalic and atraumatic; Negative for trauma or tenderness Tympanic Membrane ED: Yes TM's clear Eyes PERRL and EOMs intact bilaterally General Eye ED: Negative for pale conjunctiva or scleral icterus Neck no lymphadenopathy, supple and no JVD General: Negative for tenderness Chest Wall inspection of chest normal and palpation of chest normal Chest: Negative for tenderness Resp normal respiratory effort and clear to auscultation bilaterally Effort and Inspection: Negative for respiratory distress or pain with movement Auscultation: Negative for rhonchi, wheezes or diminished lung sounds Cardio regular rate, regular rhythm, S1 normal heart sound, S2 normal heart sound and no murmurs Peripheral Pulses: pulses 2+ throughout GI normal to inspection, nondistended, normoactive bowel sounds, soft to palpation, non-tender, non-distended and no masses Back/Spine no CVA tenderness and no thoracic nor lumbar tenderness Extremity Extremity Narrative: Patient has soft tissue swelling noted over the left clavicle and left supraclavicular soft tissues. Patient has tenderness to palpation over the clavicle. Patient has pain with range of motion of the glenohumeral joint. He is neurovascular intact distally. General Extremety ED: Negative for edema General Extremity: Negative for edema Neuro oriented x3, CN's II-XII intact bilaterally, no sensory deficits noted and gait normal Sensorium / Orientation: awake, alert, oriented to person, oriented to place and oriented to time Motor Exam: strength 5/5 throughout and strength abnormal Psych mental status grossly normal Skin no rashes or lesions noted and no wounds MDM MDM MDM Narrative Medical decision making narrative: Patient was medicated with a milligram of Dilaudid and 4 mg of Zofran IM. Patient was given a sling. Patient will be referred to orthopedics for follow-up. It is possible his fracture may be related to his multiple myeloma. Patient did have a biopsy of T11 yesterday as he has a growth there likely related to his multiple myeloma. Radiography Diagnostic Testing: Left clavicle obtained showed a mid clavicle fracture with mild displacement. Official report from radiology pending. I suspect this may be a pathologic fracture. Discharge Plan Triage Chief Complaint: Upper Extremity Injury ED Provider: Darrion Friend Dx/Rx/DC Orders Clinical Impression: Clavicle fracture Instructions: ED Fracture, Clavicle Prescriptions: New oxycodone-acetaminophen [oxycodone-acetaminophen] 1 TABLET tablet 1 tab PO Q6H PRN PRN (Reason: pain) 5 Days Qty: 20 RF: 0 No Action multivitamin capsule 1 cap PO DAILY RF: 0 metformin 1,000 mg tablet 1,000 mg PO BID Qty: 180 RF: 1 lisinopril 20 mg tablet 20 mg PO QDAY Qty: 90 RF: 1 Trulicity 1.5 mg/0.5 mL pen injector 1.5 mg SC QWEEK Qty: 6 RF: 1 lidocaine 5 % adhesive patch,medicated 1 patch topical DAILY Qty: 30 RF: 1 lorazepam [Ativan] 1 mg tablet 1 mg PO DAILY PRN (Reason: anxiety) Qty: 1 RF: 0 oxycodone-acetaminophen [oxycodone-acetaminophen] 1 TABLET tablet 1 tab PO Q6H PRN PRN (Reason: pain) 5 Days Qty: 20 RF: 0 Primary Care Provider: Ang Epps NP Referrals: Rodri Mcintosh MD [STAFF PHYSICIAN] - 3-5 Days Ang Epps NP, USER EXPERIENCE ARCHITECT-C [Primary Care Provider] - Disposition Disposition: Home, Self Care
[2021-03-17 10:15] VITALS: BP 146/94; PULSE 77; RESP 16; O2SAT 98
[2021-03-17] MEDS: HYDROmorphone 1 MG/ML Syringe IM (10:22)
[2021-03-17] MEDS: Ondansetron 4 MG/2 ML Vial IM (10:22)
--- NOTE | 2021-03-17 10:30 | RAD_ITS ---
EXAM: XR LEFT CLAVICLE COMPLETE, 2 OR MORE VIEWS : 1970 CLINICAL INDICATION: pain TECHNIQUE: Frontal and lordotic views of the left clavicle. This report was created using [employer] report generation technology. COMPARISON: None. FINDINGS: BONES/JOINTS: There is a fracture through the midshaft of the clavicle. Preservation of the joint space. No sclerotic or destructive changes observed. SOFT TISSUES: Unremarkable. No soft tissue swelling or gas. No radiopaque foreign body. RAD/Clavicle IMPRESSION: Fracture of the left clavicle. at 1100 Reported and signed by: Dawson Dumont MD Electronically Signed: Dawson Dumont MD at 10:59 EDT Tel , Service support ,
== END 2021-03-17 10:50 | disposition home or self-care (01) ==
PROVIDERS: Emergency Provider Emergency Medicine; PCP Nurse Practitioner Family
DX: S42.002A Fracture of unspecified part of left clavicle, initial encounter for closed fracture (principal); E11.9 Type 2 diabetes mellitus without complications; I10 Essential (primary) hypertension; Z79.84 Long term (current) use of oral hypoglycemic drugs; X58.XXXA Exposure to other specified factors, initial encounter; Z79.899 Other long term (current) drug therapy
CPT/HCPCS: 73000; 96372; 99284; J2405

== ENCOUNTER → 2021-03-23 13:52 | Outpatient (CLI) | payer BC, SELFPAY ==
--- NOTE | 2021-03-23 13:53 | MRI_ITS ---
STUDY: MRI BRAIN WITH AND WITHOUT CONTRAST REASON FOR EXAM: Male, 50 years old. multiple myeloma with clival lesion -- eval extent of disease TECHNIQUE: Standardized multiplanar fat and water weighted pulse sequences were obtained. IV Yes YES was administered for the contrast portion of the examination. COMPARISON: None. FINDINGS: Normal size of the ventricles and extra-axial spaces for the patient''s age. Normal white matter tracts of the supratentorial brain. Normal bilateral basal ganglia. Normal thalami. There is no extra-axial fluid accumulation. Normal flow voids within the major intracranial circulation suggesting patency by spin echo criteria. Normal venous enhancement. There is no enhancing lesion in the left lateral aspect of the clivus which may be consistent with metastatic disease without intradural extension. There are enhancing lesions within the skull the largest involving the left posterior frontal bone with associated dural membrane enhancement. There is a similar-appearing lesion within the left parietal bone. There is another similar-appearing lesion within the right parietal bone There is another enhancing lesion involving the right sphenoid wing with enhancement of the dural membrane of the anterior inferior right temporal lobe. There are a few other smaller enhancing lesions within the intramedullary portion of the skull without definitive evidence for dural extension Normal sella turcica, pituitary gland, infundibular stalk, optic chiasm and hypothalamus. Normal tectal plate and pineal gland. Normal midbrain, lori and medulla. Normal cerebellum. Normal basal cisterns. Normal bilateral temporal bones. Normal bilateral internal auditory canals. No demonstrated orbital abnormality, within the constraints of a routine brain study. Normal visualized paranasal sinuses. . Normal visualized soft tissue structures. Normal visualized upper cervical spine. MRI/Brain W/WO Contrast IMPRESSION: Multiple enhancing lesions within the diploic space of the skull with dural extension which may be consistent with multiple myeloma. There is also a lesion involving the right sphenoid wing and left lateral aspect of the clivus. No definitive evidence for brain metastasis Electronically Signed: Tylor Ferguson MD at 19:17 EDT , Service support ,
--- NOTE | 2021-03-23 13:55 | MRI_ITS ---
STUDY: MRI CERVICAL SPINE WITH AND WITHOUT CONTRAST REASON FOR EXAM: Male, 50 years old. evaluation of C2 lesion and other myeloma TECHNIQUE: Standardized and water weighted pulse sequences were obtained in the sagittal and axial following administration of IV 27cc dotarem. COMPARISON: None FINDINGS: Normal foramen magnum and brainstem-cervical cord junction. Normal craniovertebral junction. Normal anterior atlantoaxial articulation. Normal odontoid process. There is low signal intensity seen within the T1 vertebral body on T1-weighted imaging sequence which becomes increased signal on T2 and STIR imaging sequence and enhances following contrast administration consistent with plasmacytoma or metastasis. There are similar findings noted within the right anterior arch of C1 and lateral mass. . Normal cervical lordosis C2-3: Normal endplates. Normal disc height, signal and morphology. Normal central canal and intervertebral neural foramina. C3-4: Normal endplates. Normal disc height, signal and morphology. Normal central canal and intervertebral neural foramina. C4-5: Normal endplates. Normal disc height, signal and morphology. Normal central canal and intervertebral neural foramina. C5-6: Normal endplates. Normal disc height, signal and minor bulging of the disc normal central canal and intervertebral neural foramina. C6-7: Normal endplates. Normal disc height, signal and minor bulging of the disc. Normal central canal and intervertebral neural foramina. C7-T1: Normal endplates. Normal disc height, signal and morphology. Normal central canal and intervertebral neural foramina. Normal cervical cord. Normal visualized soft tissue structures. MRI/Spine Cervical W/WO Contrast IMPRESSION: Findings which may be consistent with multiple myeloma or metastatic involvement of the right anterior arch and lateral mass of C1 as well as the T1 vertebral body Minor bulging of the discs at C5-6 and C6-7 without spinal stenosis Electronically Signed: Tylor Ferguson MD at 19:07 EDT , Service support ,
== END ==
PROVIDERS: PCP Nurse Practitioner Family; Referring Provider Student in an Organized Health Care Education/Training Program; Visit Provider Student in an Organized Health Care Education/Training Program
DX: C90.00 Multiple myeloma not having achieved remission (principal)
CPT/HCPCS: 70553; 72156; A9575

== ENCOUNTER → 2021-03-27 08:08 | Outpatient (CLI) | payer BC, SELFPAY ==
[2021-03-27] VITALS (10 sets, daily range): BP systolic 116–150; BP diastolic 57–116; PULSE 70–84; RESP 12–22; TEMP 36.6; O2SAT 92–99; BMI 42.5
--- NOTE | 2021-03-27 | BMB_PTH ---
PATIENT: TIM JONES LOC: CT U#:[id number] AGE/SX: 55/M ROOM: RE03/27/[address]: Dr. Solo Yanez MD : 1970 BED: DIS: SPEC #: [id number] RECD: 03/27/21 10:44 STATUS: STEFANY REAlissa #: [id number] BRANDEN: 03/27/21 00:[address]: Solo Yanez DEPT: BONE MARROW RECD BY: Ludy Newsome ENTERED: 03/27/21 10:46 SP TYPE: BMB OTHR DR: TORIE Rees Tissues: A - Bone marrow, NOS B - Bone marrow, NOS C - Bone marrow, NOS Procedures: Decalcification bone/plaque Bone Marrow Aspiration Bone Marrow Core Biopsy Iron Stain Bone Marrow HEADER OPERATION: Bone marrow biopsy and aspiration PRE-OP DIAGNOSIS: Plasmacytoma, increased globulin level, multiple myeloma TISSUE SUBMITTED: A - Core, B - Clot, C - Smears, and send outs (flow, cytogenetics and FISH) BONE MARROW DIAGNOSIS Right hip bone marrow core, clot and aspirate smears: Hematopoietic marrow with trilineage hematopoiesis and mild plasmacytosis consisting with involvement by plasma cell dyscrasia. See comment. VERA:sean 03/30/2021 COMMENT Flow cytometry study from [facility] shows plasma cell neoplasm (IgG kappa-restricted). The complete report is viewable in patient?s EMR. The abnormal plasma cells in flow cytometry study is 1.53%. Bone marrow core biopsy is nondiagnostic as it contains only a minute fragment of blood clot. Bone marrow clot shows only a few minute fragment of bone marrow particles. Aspirate smear is paucispicular and cellular. Cytogenetic and FISH studies are pending at this time. Please make reference to previous specimen ([id number]) lesion T11, CT-guided core biopsy with diagnosis of ?consistent with involvement by plasma cell dyscrasia, kappa-restricted.? BONE MARROW STUDY Slides are reviewed. CBC DATE: 03/27/21 WBC 4.8; RBC 4.18; HGB 12.4; HCT 36.0; MCV 86.1; RDW 12.8; PLTS 205,000 SEGS 51.6%; LYMPHS 35.0%; MONOS 11.3%; EOS 1.3%; BASOS 0.2% PERIPHERAL SMEAR: Submitted. RBC: Normocytic and normochromic. WBC: Unremarkable. The WBC count is compatible to as reported above. PLTS: Adequate. BONE MARROW ASPIRATE DIFFERENTIAL: 200 cell count. Blasts % (normal 0-2): 0 Promyelocytes % (normal 1-5): 0 Myelocytes and metamyelocytes % (normal 17-41): 27 Bands and Segs % (normal 15-32): 50 Eos % (normal 1-6): 2 Basos % (normal 0-1): 0 Monocytes % (normal 0-4): 0 Erythroid Precursors % (normal 17-35): 10 Lymphocytes % (normal 7-13): 7 Plasma Cells % (normal 0-2): 4 ASPIRATE FINDINGS: Site: Not specified Paucispicular, Cellular M/E ratio: 7.9 (Normal 1.5-4.0) Megakaryocytes: Rare megakaryocytes are noted and normal morphology. Erythropoiesis: Normoblastic. Granulopoiesis: Progressive and unremarkable. Comment: Mild plasmacytosis is noted. A few binucleated plasma cells are also noted. CORE BIOPSY FINDINGS: Site: Not specified Specimen consistent with minute fragment of blood clot. Bone marrow core is not identified. ASPIRATE CLOT FINDINGS: Site: Not specified Specimen consists of a few minute fragments of marrow tissue with trilineage hematopoiesis and mild plasmacytosis. Immunohistochemistry ([id number]) supports mild plasmacytosis and comprise about 5% of total plasma cell population. Monoclonality could not be assessed due to the IHC slide contains only minute fragments of marrow tissue. SPECIAL STAINS WITH MATCHED CONTROLS: Iron: 2+ (bone marrow clot section) Reticulin: Mild increase of reticulin is noted (bone marrow clot section) PAS: Highlights myeloid cells and megakaryocytes. BONE MARROW GROSS A - Received is a container labeled with the patient's name and designated right hip. The specimen entirely consists of scant fragments of blood clot measuring 0.2 x 0.1 x 0.1 cm. The specimen is totally submitted in one cassette. B - Received labeled with the patient's name and designated right hip is a specimen that consists of approximately 6 cc of bloody fluid that on filtration yields multiple minute fragments of blood clots measuring in aggregate 3 x 2.5 x 0.3 cm. The specimen is totally submitted in one cassette. C - Also received are 15 unstained and 1 peripheral stained slides. The unstained slides are submitted for appropriate staining. Also received are three green top tubes which are sent to our reference lab for flow, cytogenetics and FISH. / SJ:rg 03/27/21 TC:5 CPT: 22525, 42670, 55835 x2, 89450 x3 ADDENDUM ADDENDUM ADDENDUM ADDENDUM ADDENDUM ADDENDUM ADDENDUM ADDENDUM ADDENDUM ADDENDUM ADDENDUM ADDENDUM ADDENDUM ADDENDUM ADDENDUM ADDENDUM ADDENDUM ADDENDUM 04/04/2021 10:11 ADDENDUM 04/09/2021 11:04 ADDENDUM 04/04/2021 10:11 ADDENDUM 04/04/2021 10:11 ADDENDUM 04/04/2021 10:11 ADDENDUM 04/04/2021 10:11 CYTOGENETICS REPORT FROM [facility] INTERPRETATION: A normal male karyotype was observed in twenty metaphase cells analyzed. Karyotype: 46,XY[20] FLUORESCENCE IN-SITU HYBRIDIZATION (FISH) FROM [facility] INTERPRETATION: 1. No evidence of IGH-MAF [translocation t(14;16)] gene rearrangement 2. No evidence of RB1 monosomy (13q14 deletion). 3. No evidence of CCND1-IGH [translocation t(11;14)] gene rearrangement, and no evidence for trisomy 11 or gain of 11q. 4. No evidence of p53 (17p13) deletion or amplification. 5. No evidence of FGFR3-IGH [translocation t(4;14)] gene rearrangement. 6. Negative for 1q21/CKS1B gain Please see complete report in e-chart or EMR ONKOSIGHT ADVANCED PLASMA CELL MYELOMA NGS PANEL FROM [facility] RESULT SUMMARY: Normal IMMUNOTHERAPY BIOMARKERS: Tumor Mutation [place]: Low (0.8 Mutations / MB) Microsatellite Instability: MSI Negative PERTINENT NEGATIVE RESULTS: The following genes are NEGATIVE for clinically relevant mutations. Mutational hotspots and surrounding exonic regions were interrogated for DNA level point mutations and indels (fusions not assayed). AKT1, AKT2, AKT3, MAURO, ATR, B2M, BIRC3, BRAF, CCND1, CDK4, CDKN1B, CDKN2A, CXCR4, CYLD, DIS3, DNMT3A, EGFR, FAM46C, FGFR3, FUBP1, IDH1, IDH2, IGF1R, IKZF1, IRF4, JAK2, KDM6A, KRAS, MAX, MYC, MYD88, NF1, NFKBIA, NOTCH1, NRAS, PIK3CA, PIK3CG, PIK3R1, PIK3R2, PIM1, PRDM1, PSMB8, PTPN11, RB1, STAT3, TERT, TET2, TGFBR2, TP53, TRAF2 Please see complete report in e-chart or EMR
--- NOTE | 2021-03-27 | IMM_PTH ---
PATIENT: TIM JONES LOC: CT U#:[id number] AGE/SX: 55/M ROOM: RE03/27/[address]: Dr. Solo Yanez MD : 1970 BED: DIS: SPEC #: [id number] RECD: 03/28/21 11:03 STATUS: STEFANY REAlissa #: [id number] BRANDEN: 03/27/21 00:[address]: Solo Yanez DEPT: IMMUNOHISTOCHEMISTRY RECD BY: Nicolette Somers ENTERED: 03/28/21 11:04 SP TYPE: IMMUNO OTHR DR: Ang Epps NP-Derek Tissues: B - Bone marrow of iliac crest Procedures: CD138 (initial) KAPPA (add) LAMBDA (add) PHYSICIAN & INSTITUTION [place] [id number] SPECIMEN INFORMATION: Tissue Source: B ? Bone marrow clot Clinical Info: Plasmacytoma, increased globulin level, multiple myeloma Specimen Number: [id number] CPT code: 90188, 24904 x2 METHODOLOGY: Deparaffinized sections of prefer/formalin-fixed tissue or PAP/DQ stained slides are incubated with monoclonal/polyclonal antibodies/oligonucleotide probes. Localization is made via biotin free immunoperoxidase method. Appropriate controls are performed and reacted as expected. Results on target cell population are indicated in the following table: RESULTS: ANTIBODY / CLONE RESULT Block B CD138 (B-A38) positive, a few cells [place] (polyclonal) noncontributory Lambda (polyclonal) noncontributory These tests were developed and their performance characteristics determined by [facility]. They may not have been cleared or approved by the U.S. Food and Drug Administration. The FDA has determined that such clearance or approval is not necessary. The above immunohistochemical/dualISH markers are ordered and reviewed by the Pathologist. INTERPRETATION: B. Bone marrow clot: Mild plasmacytosis. See comment. SJ:sean 03/30/2021 Comment: [place] and lambda IHC are noncontributory as not enough marrow tissue is present on the IHC slides.
--- NOTE | 2021-03-27 08:25 | CT_ITS ---
PROCEDURE: CT GUIDED BONE marrow biopsy and aspiration of the posterior right iliac bone. DATE: 03/27/2021. INDICATION: Male, 50 years old. History of multiple myeloma. PHYSICIAN: Piotr Prasad M.D. RADIATION DOSAGE (If Supplied By Facility): CTDIvol = ( 19.8 ) mGy, DLP = ( 745.95 ) mGycm. Individualized dose optimization techniques were utilized. PROCEDURE: The risks, benefits, and alternatives to the procedure were explained to the patient. The specific risk of hemorrhage requiring further treatment or intervention was detailed and accepted. Follow-up instructions were discussed with the patient as well. Written informed consent was obtained. The patient was brought into the CT suite and placed in the prone position. . An appropriate entry site along the posterior right iliac bone was identified. The overlying skin was prepped and draped in the usual sterile fashion. 1% lidocaine was administered subcutaneously for local anesthesia. Conscious sedation was performed. The patient received 3 mg of VERSED and 75 mcg of FENTANYL intravenously. Conscious sedation was started at 9:28 AM and terminated at 9:48 AM. The patient was independently monitored by the department nurse. Under CT guidance, a bone marrow biopsy and bone marrow aspirates were performed utilizing an 11-gauge bone marrow biopsy kit. The specimens were then placed in the appropriate fluid and transported to the laboratory for analysis. Hemostasis was obtained. The patient tolerated the procedure well without immediate complications. CT/Biopsy/Inj or Needle Placement IMPRESSION: Successful CT guided bone marrow biopsy and bone marrow aspirates of the posterior aspect of the right iliac bone, as described above. Conscious sedation protocol was followed. Electronically Signed: Piotr Prasad MD at 10:30 EDT , Service support ,
[2021-03-27 08:32] LABS: Absolute Lymphocyte Count 1.67 X10^3/uL (0.83-4.51); Absolute Neutrophil Count 2.5 X10^3/uL (2.0-7.7); Basophil# 0.01 X10^3/uL; Basophil% 0.2 % (0-1); Eosinophil# 0.06 X10^3/uL; Eosinophils% 1.3 % (0-5); Hemoglobin 12.4 g/dL (13.0-16.5); Lymphocyte # 1.67 X10^3/ul (0.83-4.51); Mean Corp Hgb Conc 34.4 g/dL (32-36); Mean Corpuscular Hgb 29.7 pg (27.0-32.0); Mean Corpuscular Volume 86.1 fL (80-94); Mean Platelet Vol. 9.4 fl (6.2-12.0); Monocyte# 0.54 X10^3/uL; Monocyte% 11.3 % (0-10); NRBC Flagged by Analyzer 0 % (0-5); Neutrophil # 2.46 X10^3/uL (2.7-7.7); Neutrophil % 51.6 % (47-70); Platelet Count 205 K/mm3 (150-450); RBC Distribution Width CV 12.8 % (11.6-14.6); Red Blood Count 4.18 M/mm3 (4.6-6.2); White Blood Count 4.8 K/mm3 (4.4-11.0)
[2021-03-27 08:37] LABS: International Normalized Ratio 1.1; Prothrombin Time (Protime)PT. 13.8 SECONDS (11.7-14.9)
[2021-03-27 08:38] LABS: Partial Thromboplast Time 27.6 Seconds (24.1-36.2)
[2021-03-27] MEDS: Midazolam 2 MG/2 ML Syringe IV ×2 (09:28→09:40)
[2021-03-27] MEDS: fentaNYL 100 MCG/2 ML Ampul IV ×2 (09:30→09:42)
[2021-03-27] MEDS: Lidocaine 2% (20 ml mdv) 20 ML Vial INFILT (09:40)
== END | disposition home or self-care (01) ==
PROVIDERS: PCP Nurse Practitioner Family; Referring Provider Internal Medicine Medical Oncology; Visit Provider Internal Medicine Medical Oncology
DX: C90.00 Multiple myeloma not having achieved remission (principal); C79.51 Secondary malignant neoplasm of bone; C80.0 Disseminated malignant neoplasm, unspecified
CPT/HCPCS: 38222; 77012; 85025; 85610; 85730; 88305; 88311; 88313; 88341; 88342; 99156; J7040

== ENCOUNTER 2021-08-10 10:35 | Outpatient (CLI) | payer BC, SELFPAY ==
--- NOTE | 2021-08-10 10:46 | RAD_ITS ---
EXAM: XR Bone Survey, Complete CLINICAL INDICATION: 51 years old, Male; MULTIPLE MYELOMA TECHNIQUE: Multiple views of the bones of the axial and appendicular skeleton. This report was created using [employer] report generation technology. COMPARISON: None. FINDINGS: Bones/joints: Multiple lytic foci in the calvarium. Chronic left clavicle fracture which appears ununited. 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 Lytic foci in the mid humeri bilaterally. Soft tissues: Unremarkable. RAD/Bone Survey Comp(Axial&Append) IMPRESSION: Lytic foci in the calvarium and humeri consistent with multiple myeloma. Electronically Signed: Toy Collins MD at 4:01 EST ,
== END 2021-08-10 23:59 | disposition home or self-care (01) ==
PROVIDERS: PCP Nurse Practitioner Family; Referring Provider Internal Medicine Medical Oncology; Visit Provider Internal Medicine Medical Oncology
DX: C90.00 Multiple myeloma not having achieved remission (principal)
CPT/HCPCS: 77075

== ENCOUNTER → 2021-10-29 | Outpatient (CLI) | payer BC, SELFPAY ==
[2021-10-29] VITALS (9 sets, daily range): BP systolic 99–137; BP diastolic 49–98; PULSE 71–92; RESP 13–29; TEMP 36.5; O2SAT 93–99; BMI 42.3
--- NOTE | 2021-10-29 | IMM_PTH ---
PATIENT: TIM JONES LOC: CT U#:[id number] AGE/SX: 51/M ROOM: RE10/29/[address]: Dr. Solo Yanez MD : 1970 BED: DIS: 10/29/2021 SPEC #: [id number] RECD: 10/30/21 11:45 STATUS: STEFANY REQ #: [id number] BRANDEN: 10/29/21 00:[address]: Solo Yanez DEPT: IMMUNOHISTOCHEMISTRY RECD BY: Nicolette Somers ENTERED: 10/30/21 11:46 SP TYPE: IMMUNO OTHR DR: Ang Epps, DATA COLLECTION TECHNICIAN-Derek Tissues: A - Bone marrow of iliac crest Procedures: CD138 (initial) KAPPA (add) LAMBDA (add) PHYSICIAN & INSTITUTION [place] [id number] SPECIMEN INFORMATION: Tissue Source: A ? Bone marrow core Clinical Info: History of multiple myeloma status post 6 cycles VCD Specimen Number: [id number] CPT code: 02263, 30520 x2 METHODOLOGY: Deparaffinized sections of prefer/formalin-fixed tissue or PAP/DQ stained slides are incubated with monoclonal/polyclonal antibodies/oligonucleotide probes. Localization is made via biotin free immunoperoxidase method. Appropriate controls are performed and reacted as expected. Results on target cell population are indicated in the following table: RESULTS: ANTIBODY / CLONE RESULT Block A CD138 (B-A38) positive (<1%) [place] (polyclonal) positive, rare cells Lambda (polyclonal) positive, rare cells These tests were developed and their performance characteristics determined by [facility]. They may not have been cleared or approved by the U.S. Food and Drug Administration. The FDA has determined that such clearance or approval is not necessary. The above immunohistochemical/dualISH markers are ordered and reviewed by the Pathologist. INTERPRETATION: A. Bone marrow core: Negative for involvement by plasma cell dyscrasia. SJ:sean 10/31/2021
--- NOTE | 2021-10-29 08:06 | CT_ITS ---
PROCEDURE: CT GUIDED left bone marrow biopsy and aspiration. DATE: 10/29/2021 INDICATION: Male, 51 years old. History of multiple myeloma. PHYSICIAN: Piotr Prasad M.D. RADIATION DOSAGE (If Supplied By Facility): CTDIvol = ( 22 ) mGy, DLP = ( 696.08 ) mGycm. Individualized dose optimization techniques were utilized. PROCEDURE: The risks, benefits, and alternatives to the procedure were explained to the patient. The specific risk of hemorrhage requiring further treatment or intervention was detailed and accepted. Follow-up instructions were discussed with the patient as well. Written informed consent was obtained. The patient was brought into the CT suite and placed in the prone. . An appropriate entry site overlying the left posterior iliac bone was identified. The overlying skin was prepped and draped in the usual sterile fashion. 1% lidocaine was administered subcutaneously for local anesthesia. Conscious sedation was performed. The patient received 3 mg of VERSED and 75 mcg of FENTANYL intravenously. Conscious sedation was started at 9:10 AM and terminated at 9:34 AM. The patient was independently monitored by the department nurse. Under CT guidance, a bone marrow biopsy and bone marrow aspirate of the posterior left iliac bone were performed utilizing an 11-gauge bone marrow biopsy kit. The specimens were then placed in the appropriate fluid and transported to the laboratory for analysis. Hemostasis was obtained. The patient tolerated the procedure well without immediate complications. CT/Biopsy/Inj or Needle Placement IMPRESSION: Successful CT guided bone marrow biopsy and aspirate, as described above. Conscious sedation protocol was followed as described. Electronically Signed: Piotr Prasad MD at 9:56 EDT ,
[2021-10-29 08:14] LABS: Absolute Lymphocyte Count 0.44 X10^3/uL (0.83-4.51); Absolute Neutrophil Count 2.6 X10^3/uL (2.0-7.7); Basophil# 0.02 X10^3/uL; Basophil% 0.6 % (0-1); Eosinophil# 0.03 X10^3/uL; Eosinophils% 0.8 % (0-5); Hematocrit 33.4 % (40-54); Hemoglobin 11.9 g/dL (13.0-16.5); Lymphocyte # 0.44 X10^3/ul (0.83-4.51); Lymphocyte % 12.2 % (19-41); Mean Corp Hgb Conc 35.6 g/dL (32-36); Mean Corpuscular Hgb 31.4 pg (27.0-32.0); Mean Corpuscular Volume 88.1 fL (80-94); Mean Platelet Vol. 9.1 fl (6.2-12.0); Monocyte% 13.8 % (0-10); NRBC Flagged by Analyzer 0 % (0-5); Neutrophil # 2.59 X10^3/uL (2.7-7.7); Neutrophil % 71.5 % (47-70); POSITIVE DIFFERENTIAL YES; Platelet Count 164 K/mm3 (150-450); RBC Distribution Width CV 13.1 % (11.6-14.6); RBC Distribution Width SD 42.1 fl (35.1-43.9); Red Blood Count 3.79 M/mm3 (4.6-6.2); White Blood Count 3.6 K/mm3 (4.4-11.0)
[2021-10-29 08:16] LABS: Differential Indicated SCAN CRITERIA MET
[2021-10-29 08:46] LABS: Prothrombin Time (Protime)PT. 12.9 SECONDS (11.7-14.9)
[2021-10-29 08:47] LABS: Partial Thromboplast Time 27.8 Seconds (24.1-36.2)
--- NOTE | 2021-10-29 09:00 | BMB_PTH ---
PATIENT: TIM JONES LOC: CT U#:[id number] AGE/SX: 51/M ROOM: RE10/29/[address]: Dr. Solo Yanez MD : 1970 BED: DIS: 10/29/2021 SPEC #: [id number] RECD: 10/29/21 10:11 STATUS: STEFANY NIRALI #: [id number] BRANDEN: 10/29/21 09:[address]: Solo Yanez DEPT: BONE MARROW RECD BY: Ludy Newsome ENTERED: 10/29/21 10:12 SP TYPE: BMB OTHR DR: TORIE Rees Tissues: A - Bone marrow, NOS B - Bone marrow, NOS C - Bone marrow, NOS Procedures: Bone Marrow Aspiration Bone Marrow Core Biopsy Iron Stain Bone Marrow HEADER OPERATION: Bone marrow biopsy and aspiration PRE-OP DIAGNOSIS: History of multiple myeloma status post 6 cycles VCD TISSUE SUBMITTED: A - Core, B - Clot, C - Smears, and send outs (flow, cytogenetics and FISH) BONE MARROW DIAGNOSIS Bone marrow core, clot and aspirate smears: A minute fragment of marrow tissue, negative for involvement by plasma cell dyscrasia. Trilineage hematopoiesis. See comment. SJ:sean 10/31/2021 COMMENT The bone marrow core biopsy does not show any bone. It shows a small amount of blood clot with a minute fragment of marrow tissue. Bone marrow clot specimen almost entirely consists of peripheral blood with rare myeloid, erythroid cells and megakarycytes. Bone marrow aspirate smears are aspicular. Immunohistochemistry ([id number]) does not show any significant increase of plasma cells. Flow cytometry study from [facility] shows no detectable clonal plasma cell or B cell population. Please make reference to previous specimens ([id number]), right hip bone marrow core, clot and aspirate smears with diagnosis of ?hematopoietic marrow with trilineage hematopoiesis and mild plasmacytosis consisting with involvement by plasma cell dyscrasia? and ([id number]) lesion T11, CT-guided core biopsy with diagnosis of ?consistent with involvement by plasma cell dyscrasia, kappa-restricted.? Cytogenetic and FISH studies are pending at this time. Case has been reviewed in consultation with Dr. Teresa who concurs with the above diagnosis. IDC:AM BONE MARROW STUDY Slides are reviewed. CBC DATE: 10/29/21 WBC 3.6; RBC 3.79; HGB 11.9; HCT 33.4; MCV 88.1; RDW 13.1; PLTS 164,000 SEGS 71.5%; LYMPHS 12.2%; MONOS 13.8%; EOS 0.8%; BASOS 0.6% PERIPHERAL SMEAR: Submitted. RBC: Normocytic and normochromic. WBC: Leukopenia. The WBC count is compatible to as reported above. PLTS: Adequate. BONE MARROW ASPIRATE DIFFERENTIAL: 200 cell count. Blasts % (normal 0-2): 0 Promyelocytes % (normal 1-5): 0 Myelocytes and metamyelocytes % (normal 17-41): 24 Bands and Segs % (normal 15-32): 51 Eos % (normal 1-6): 1 Basos % (normal 0-1): 0 Monocytes % (normal 0-4): 3 Erythroid Precursors % (normal 17-35): 10 Lymphocytes % (normal 7-13): 10 Plasma Cells % (normal 0-2): 1 ASPIRATE FINDINGS: Site: Not specified Cellular M/E ratio: 7.5 (Normal 1.5-4.0) Megakaryocytes: Present and normal morphology. Erythropoiesis: Normoblastic. Granulopoiesis: Progressive and unremarkable. Comment: Smears show hemodilution. Significant increase number of plasma cells is not seen. CORE BIOPSY FINDINGS: Site: Not specified Adequacy: Limited Comment: A minute fragment of marrow tissue is noted with trilineage hematopoiesis. Immunohistochemistry ([id number]) shows rare plasma cells. ASPIRATE CLOT FINDINGS: Site: Not specified Comment: The specimen almost entirely consists of peripheral blood with rare myeloid, erythroid cells and megakaryocytes. SPECIAL STAINS WITH MATCHED CONTROLS: Iron: Absent Reticulin: No significant increase of reticulin fibers is noted. PAS: Highlights myeloid cells and megakaryocytes. BONE MARROW GROSS A - Received is a container labeled with the patient's name and designated bone marrow. The specimen consists of multiple fragments of blood clot with no obvious bone measuring 0.7 x 0.2 x 0.1 cm. The specimen is totally submitted in one cassette. B - Received labeled with the patient's name and designated bone marrow is a specimen that consists of approximately 6 ml of bloody fluid that on filtration yields multiple minute fragments of blood clots measuring in aggregate 3 x 2.5 x 0.3 cm. The specimen is totally submitted in one cassette. C - Also received are 18 unstained and 1 peripheral stained slides. The unstained slides are submitted for appropriate staining. Also received is one green top tube which is sent to our reference lab for flow, cytogenetics and FISH. / SJ:rg 10/29/2021 TC:5 CPT: 67495, 73454, 07910 x2, 48362 x3 ADDENDUM ADDENDUM ADDENDUM ADDENDUM ADDENDUM ADDENDUM ADDENDUM ADDENDUM 11/22/2021 09:55 ADDENDUM 11/22/2021 09:55 ADDENDUM 11/22/2021 09:55 ADDENDUM 11/22/2021 09:55 ADDENDUM 11/22/2021 09:55 CYTOGENETICS REPORT FROM [facility] INTERPRETATION: A normal male chromosome complement was observed in twenty metaphases analyzed. Karyotype: 46,XY[20] Please see complete report in e-chart or EMR
[2021-10-29] MEDS: 0.9% Normal Saline 250 ML IV.SOLN. (09:09)
[2021-10-29] MEDS: Midazolam 2 MG/2 ML Syringe IV ×2 (09:10→09:32)
[2021-10-29] MEDS: fentaNYL 100 MCG/2 ML Ampul IV ×2 (09:14→09:27)
[2021-10-29] MEDS: Lidocaine 2% (20 ml mdv) 20 ML Vial INFILT (09:25)
[2021-10-29 13:32] LABS: Pathologist Review Reviewed
== END | disposition home or self-care (01) ==
LOC: CT 07:55
PROVIDERS: PCP Nurse Practitioner Family; Referring Provider Internal Medicine Medical Oncology; Visit Provider Internal Medicine Medical Oncology
DX: C90.00 Multiple myeloma not having achieved remission (principal); E11.9 Type 2 diabetes mellitus without complications; I10 Essential (primary) hypertension; M54.50 Low back pain, unspecified; G89.29 Other chronic pain
CPT/HCPCS: 38222; 36415; 77012; 85025; 85610; 85730; 88305; 88311; 88313; 88341; 88342; 99156; J7050; A4216

== ENCOUNTER 2022-01-22 16:30 | Outpatient (RCR) | payer BC, SELFPAY ==
--- NOTE | 2021-12-20 18:39 | HP.PTEVAL ---
Patient's Visit Information TIM JONES is a 51 year old M referred to Physical Therapy by Dr. Solo Kamara DO with a diagnosis of L GH OA. Date of Evaluation: 12/20/21 Physical Therapist: PREMA GeigerT, OCS, CSCS - Visit Plan Frequency: 2-3x /Week Duration: 4-6 Weeks Plan: 2-3x/week for 4 weeks for. 1. STM to L pec and scalenes and stretch, gentle clavicle mobs L. 2. strength B scap and RC and posture, progress HEP. MH as needed. - Subjective Had stage 2 multiple myeloma and broke L collarbone. 2.5 months out of chemo now. Gave shot in shoulder for OA. Last fracture was last March with a box falling on it. Collarbone has hurt since. Chemo and radiation kept him from healing. X ray was OA and gave injection which helped. Could not tolerate more than 30 minutes in bed prior to injection. Now can sleep on it. pain this week is 2/10 intermittently and worse with lying in bed. 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 Comfortable at rest. likes to sidelie at night. Hobbies are none since diagnosis. Driving only hurts if he moves it too far. No problem getting dressed. Basic ADLs are going well. Cannot reach behind back but never could. Exercises : only working. CA treatment: 2.5 months out of chemo, may need maintenance at some point. Radiation last March. it was in base of neck. He did have CA in thoracic and L shoulder clavicle. All gone now as best he knows. - Pain l shoulder. Pain Intensity (Out of 10): 0 Pain Intensity Range: 0, 4 - Objective Walks and trasnfers normal and I. Cervical aROM 50 ext adn 60 B rotation without pain but slight R deviation with extension. Scapular ROM is symmetrical but feels stiff on L anteriorly. UE aROM 150 B flexion and abduction but stiff at end range on L. Rotations are fulla nd symmetrical but feeling stiff on L at end range. elbow and wrist aROM symmetrical and WFL. reflexes 1/3 bi and tri. Sensation UE WNL to gross light touch. Strength 4- L shoulder flex and abd vs 4 on R, rotations 4 B, elbow 4+ B and wrist 5/5 B. Tender to touch in proximal L clavicle particularly in soft tissue above and below clavicle, particularly in pecs. - apprehension. - drop arm. - HK and neer. - Balance/Special Test Scores Quick DASH Score: 36.3625 - Goals Goal 1:: Sleep without waking at night or discomfort Goal Time Frame: 4-6 Weeks Goal 2:: Full aROM L shoulder without feeling stiff. Goal Time Frame: 4-6 Weeks Goal 3:: patient I in managemnt of condition including strength ex for home. Goal Time Frame: 4-6 Weeks Goal 4:: Pt feel 90% back to normal in L shoulder and drive without stiffness. Goal Time Frame: 4-6 Weeks Goal 5:: Quick dash score 14 or less. Goal Time Frame: 4-6 Weeks - Rehabilitation Potential Physical Therapy Diagnosis: L shoulder stiffness and pain causing sleeplessness. Rehabilitation Potential: Good - Anticipated Interventions Patient/Client Instruction: Educate patient on: Condition, Plan of Care For the Purpose of:: To decrease pain, To improve muscle performance and motor function, To improve health of tissue, To improve self management, To prevent re-injury Therapeutic Exercise to Include: Strength training, Flexibilty training, Passive ROM, Active ROM, Scapular Strength/Stabilization For the Purpose of:: To decrease pain, To improve muscle performance and motor function, To improve ability of physical actions for home/community/work/leisure, To foster healthy habits Manual Therapy Techniques to Include: Mobilization, Passive ROM, Soft tissue mobilization For the Purpose of:: To increase ROM Thermo therapy (hot pack): Yes For the Purpose of:: To improve nutrient delivery to tissue Thank you for the opportunity to evaluate your patient. For Medicare and Medicare HMO plans, please review the plan of care and approve it. It will need to be FAXED BACK to us at [phone] for Medicare purposes. For Medicare only, by signing this I certify the plan of care. Please let me know if there are questions or concerns regarding this plan of care. Physician Signature: Date:
--- NOTE | 2022-03-25 12:10 | HP.PT.NRP ---
TIM JONES was seen in my office for initial evaluation on 12/20/21. The following Plan of Care was established for this patient: Initial Frequency: 2-3x /Week Initial Duration: 4-6 Weeks Patient/Client Instruction: Educate patient on: Condition, Plan of Care For the Purpose of:: To decrease pain, To improve muscle performance and motor function, To improve health of tissue, To improve self management, To prevent re-injury Therapeutic Exercise to Include: Strength training, Flexibilty training, Passive ROM, Active ROM, Scapular Strength/Stabilization For the Purpose of:: To decrease pain, To improve muscle performance and motor function, To improve ability of physical actions for home/community/work/leisure, To foster healthy habits Manual Therapy Techniques to Include: Mobilization, Passive ROM, Soft tissue mobilization For the Purpose of:: To increase ROM Thermo therapy (hot pack): Yes For the Purpose of:: To improve nutrient delivery to tissue This patient was last seen in our office 01/22/22. Pertinent comments regarding their Physical therapy will appear below: Pt seen for 6 visits of POC and was 80% better. He was to f/u 2 weeks later but did not attend. At this point, I will discontinue due to nonattendance. At this point I will be discontinuing this patient from physical therapy. I would be happy to see this patient again in the future if found appropriate by the physician. Thank you! Fidencio Denny, DPT, OCS, CSCS Balance/Gait/Functional tests - Balance/Special Test Scores Quick DASH Score: [phone]
== END 2022-01-22 19:00 | disposition home or self-care (01) ==
LOC: PT 16:30
PROVIDERS: PCP Nurse Practitioner Family; Referring Provider Orthopaedic Surgery; Visit Provider Orthopaedic Surgery
DX: M19.011 Primary osteoarthritis, right shoulder (principal); Z87.81 Personal history of (healed) traumatic fracture
CPT/HCPCS: 97110; 97161

== ENCOUNTER → 2022-06-13 | Outpatient (CLI) | payer BC, SELFPAY ==
--- NOTE | 2022-06-13 10:30 | RAD_ITS ---
STUDY: X-RAY CHEST REASON FOR EXAM: Male, 52 years old. COUCH AND SOB FOR ABOUT 3 WEEKS. HX OF MULTIPLE MYELOMA. PATIENT STATES POSSIBLE PNEUMONIA PER HIS DR. TECHNIQUE: PA and lateral views of the chest. COMPARISON: None. FINDINGS: The lungs are clear and expanded. There is no demonstrated pleural abnormality. Normal size heart. Normal mediastinum and benji. Normal visualized pulmonary arteries. Normal visualized aortic arch and descending thoracic aorta. There are diffuse degenerative changes of the visualized thoracic spine. Old fracture deformity of the left clavicle noted. There is no demonstrated abnormality of the visualized soft tissue structures of the upper abdomen. RAD/Chest PA and Lateral IMPRESSION: Degenerative changes, as described above. No demonstrated acute cardiopulmonary process. Electronically Signed: Drew Nichols MD at 11:16 EST ,
== END | disposition home or self-care (01) ==
LOC: RAD 10:14
PROVIDERS: PCP Nurse Practitioner Family; Referring Provider Nurse Practitioner Family; Visit Provider Nurse Practitioner Family
DX: C90.00 Multiple myeloma not having achieved remission (principal); R06.02 Shortness of breath; R05.9 Cough, unspecified
CPT/HCPCS: 71046

== ENCOUNTER → 2022-07-29 | Outpatient (CLI) | payer BC, SELFPAY ==
--- NOTE | 2022-07-29 09:00 | RAD_ITS ---
INDICATION: multiple myeloma eval disease EXAMINATION/TECHNIQUE: X-RAY - XR Bone Survey Complete: 2 view skull, 2 views of entire spine, bilateral ribs, AP pelvis, bilateral upper and lower extremities. 23 images total. COMPARISON: None. FINDINGS: Numerous lytic calvarial lesions present with no depressed skull fracture detected. Intact and adequately aligned spine with multilevel mild degenerative changes. Intervertebral osseous fusion noted at C3-4. Equivocal small lytic lesion at L3 vertebral body on lateral view versus benign superimposed bowel gas shadow. Healed fractures left ribs 5 and 12. No discrete lytic rib lesion detected. Unremarkable lungs. Cardiomediastinal silhouette normal size. Nonobstructive bowel gas pattern. No definitive pelvic bone lesion but evaluation limited secondary to overlying bowel gas. Adequate alignment of bilateral hips with preserved joint spaces. Unremarkable sacroiliac joints and pubic symphysis. Bilateral upper and lower extremities with no acute fracture, dislocation or suspicious osseous lesion. Joint spaces are preserved. RAD/Bone Survey Comp(Axial&Append) IMPRESSION: Numerous lytic calvarial lesions compatible with clinical history of multiple myeloma. Equivocal small lytic lesion within L3 vertebral body, versus superimposed bowel gas. Electronically Signed: Ang Castellanos MD at 2:10 EST ,
== END | disposition home or self-care (01) ==
PROVIDERS: PCP Nurse Practitioner Family; Referring Provider Internal Medicine Medical Oncology; Visit Provider Internal Medicine Medical Oncology
DX: C90.00 Multiple myeloma not having achieved remission (principal)
CPT/HCPCS: 77075

== ENCOUNTER 2022-08-26 14:24 | Emergency (ER) | payer BC, SELFPAY ==
[2022-08-26 14:24] VITALS: BP 121/87; BP 143/91; PULSE 101; PULSE 106; RESP 16; RESP 20; TEMP 36.8; O2SAT 97; O2SAT 99; BMI 41.5
[2022-08-26 14:34] VITALS: O2SAT 98
[2022-08-26] MEDS: dexAMETHasone 10 MG/ML Vial IV (15:23)
[2022-08-26 15:27] VITALS: BP 166/93; PULSE 98; RESP 13; O2SAT 98
--- NOTE | 2022-08-26 15:37 | EX.ED.DYSGE1 ---
HPI History of Present Illness Chief Complaint: Shortness of Breath Informant: patient and other (ENT, Dr. Powell) Narrative Narrative: Patient presents with Dr. Bravo's office secondary to shortness of breath. Dr. Bravo arrives with the patient with bedside scope being performed. Patient has a history of multiple myeloma. Over the last month or so he has had increased shortness of breath with occasional stridor. Dr. Bravo saw him in the office a month ago. Patient walked into ENT office today requesting some medication to help him breathe better as he is supposed to be leaving on a trip to [place]. Due to his stridor he was sent to the emergency room. Bedside scope was performed that shows narrowed airway to approximately [address] Bravo recommends 10 mg of IV Decadron and transfer to a specialty center with appropriate specialties available. [facility] Medical History Acute bronchitis, unspecified Chronic lumbar pain Contact with or exposure to other viral diseases Cough Diabetes Encounter for education Encounter for preventative adult health care examination Encounter for screening colonoscopy High blood pressure Multiple myeloma in relapse Type 2 diabetes mellitus Vitamin B12 deficiency Home Medications dulaglutide 1.5 mg/0.5 mL subcutaneous pen injector (Trulicity) 1.5 mg (0.5 mL) subcut QWEEK #6 mL 12/12/21 [Rx Last Taken Unknown] dexamethasone 4 mg tablet 20 mg PO .weekly #20 tabs 07/29/22 [Rx Last Taken Unknown] lisinopril 10 mg tablet 10 mg PO DAILY 08/26/22 [History Last Taken Unknown] Allergy/AdvReac Type Severity Reaction Status Date / Time Penicillins Allergy Severe anaphylacti Verified 08/26/22 14:26 c Family History Father Diabetes Mother No problems noted. Social History household members: spouse housing: house Smoking Status: Never smoker Electronic Cigarette Use: not used second hand exposure: No alcohol intake: never substance use type: does not use what type of physical activity do you participate in: walking frequency: 1-2 times per week ROS ROS ED Constitutional Constitutional ED: Denies chills or fever(s) Eyes Eyes: Denies change in vision or discharge from eye(s) ENT ENT ED: Denies discharge from eye(s), rhinorrhea or sore throat Cardiovascular Cardiovascular: Denies chest pain or palpitations Respiratory/Chest Respiratory/Chest: Reports cough and dyspnea Gastrointestinal Gastrointestinal: Denies abdominal pain, diarrhea, nausea or vomiting Genitourinary Genitourinary ED: Denies dysuria Musculoskeletal Musculoskeletal: Reports extremity pain and myalgias; Denies back pain Integumentary Denies Abrasions or rash Neurologic Neurologic: Denies headache(s) or weakness Allergic/Immunologic Allergic/Immunologic ED: Denies lip swelling or urticaria EXAM Physical Exam Narrative Exam Narrative: Patient sitting upright in bed. Speaks with a strong voice and is tolerating secretions at this time. With cough stridorous sound is noted. Const Vital Signs: 08/26/22 14:24 08/26/22 14:34 08/26/22 14:24 Temperature 98.2 F Temperature Source Temporal Pulse Rate 106 H 101 H Respiratory Rate 20 H 16 Respiratory Effort Normal Non-Labored Respiratory Depth Normal Respiratory Pattern Normal Blood Pressure 143/91 H 121/87 H Blood Pressure Mean 108 98 Pulse Ox 99 97 Oxygen Delivery Method Room Air Room Air Room Air 08/26/22 15:27 08/26/22 16:13 08/26/22 16:21 Temperature Temperature Source Pulse Rate 98 74 97 Respiratory Rate 13 15 22 H Respiratory Effort Respiratory Depth Respiratory Pattern Blood Pressure 166/93 H 139/86 H 139/86 H Blood Pressure Mean 117 103 103 Pulse Ox 98 99 96 Oxygen Delivery Method Room Air Room Air 08/26/22 17:23 Temperature Temperature Source Pulse Rate 96 Respiratory Rate 15 Respiratory Effort Respiratory Depth Respiratory Pattern Blood Pressure 156/96 H Blood Pressure Mean 116 Pulse Ox 99 Oxygen Delivery Method Room Air Positive well nourished and well developed General Appearance ED: well developed HEENT Reports normocephalic and head/scalp atraumatic Eyes PERRL and EOMs intact bilaterally Neck supple Chest Wall inspection of chest normal and palpation of chest normal Resp normal respiratory effort Resp Narrative: Slightly transmitted upper airway sounds. Cardio regular rate and regular rhythm GI normal to inspection, nondistended, normoactive bowel sounds Palpation: soft Extremity normal to inspection Neuro oriented x3 and no sensory deficits noted Sensorium / Orientation: alert Motor Exam: strength 5/5 throughout Psych Mood & Affect: anxious Skin no rashes or lesions noted MDM MDM MDM Narrative Medical decision making narrative: Patient given 10 mg of IV Decadron. Patient placed on secured entrance monitor. CBC and chemistry studies obtained. History & Record Review Discussion w/independent historian: Patient, Family and Other (ENT) Additional record(s) reviewed:: Prior outpatient record (Oncology records) Lab Data Attestation: I reviewed the patient's lab results. Labs: Laboratory Results - last 24 hr 08/26/22 08/26/22 15:20 15:20 WBC 3.7 L RBC 4.02 L Hgb 12.2 L Hct 34.9 L MCV 86.8 MCH 30.3 MCHC 35.0 RDW Std Deviation 42.3 RDW Coeff of Uziel 13.4 Plt Count 210 MPV 9.3 Immature Gran % (Auto) 0.500 Neut % (Auto) 72.7 H Lymph % (Auto) 10.7 L [place] % (Auto) 14.5 H Eos % (Auto) 1.1 Baso % (Auto) 0.5 Absolute Neuts (auto) 2.7 Absolute Lymphs (auto) 0.39 L Nucleated RBC % 0 Differential Comment SCANNED Diff Path Review May foll Sodium 139 Potassium 3.7 Chloride 105 Carbon Dioxide 29.0 Anion Gap 5 BUN 19 H Creatinine 1.01 Estim Creat Clear Calc 83.71 Est GFR (MDRD) Af Amer 100 Est GFR (MDRD) Non-Af 83 BUN/Creatinine Ratio 18.8 Glucose 208 H Calcium 9.4 Treatment and Re-Evaluation :: Lab work reveals white count of 3.7, at his baseline. Hemoglobin is 12.2. Chemistry studies largely unremarkable other than a glucose of 208. At this time at rest patient is maintaining his airway without difficulty. Sats remained in the high 90s. I reviewed the patient's CT scan from August 13 as well as today. As best as I can tell on 13 August the airway was approximate 6 mm in diameter with a 2 x 1.6 cm mass/fluid collection in the posterior airway. The CT scan performed earlier today has not been read. It appears that the measurements of the mass/fluid collection are roughly 2 x 1.3 cm with a 1 cm airway. I spoke with the transfer center at [facility] who has discussed the case with her ENT doctor. They have accepted the patient to their emergency room. Transportation is being arranged at this time. Discharge Plan Triage Chief Complaint: Shortness of Breath ED Provider: Ami Cervantes Dx/Rx/DC Orders Clinical Impression: Subglottic stenosis, Multiple myeloma Prescriptions: No Action Trulicity 1.5 mg/0.5 mL pen injector 1.5 mg SC QWEEK Qty: 6 3RF lisinopril 10 mg tablet 10 mg PO DAILY dexamethasone 4 mg tablet 20 mg PO .weekly Qty: 20 0RF Primary Care Provider: Ang Epps NP Referrals: Ang Epps NP, [facility] [Primary Care Provider] - Disposition Disposition: Acute Care Hospital Discharge Location: [facility] Discharge Date/Time: 08/26/22 17:38
[2022-08-26 15:38] LABS: Absolute Lymphocyte Count 0.39 X10^3/uL (0.83-4.51); Absolute Neutrophil Count 2.7 X10^3/uL (2.0-7.7); Basophil# 0.02 X10^3/uL; Basophil% 0.5 % (0-1); Eosinophil# 0.04 X10^3/uL; Eosinophils% 1.1 % (0-5); Hematocrit 34.9 % (40-54); Hemoglobin 12.2 g/dL (13.0-16.5); Lymphocyte # 0.39 X10^3/ul (0.83-4.51); Lymphocyte % 10.7 % (19-41); Mean Corpuscular Hgb 30.3 pg (27.0-32.0); Mean Corpuscular Volume 86.8 fL (80-94); Mean Platelet Vol. 9.3 fl (6.2-12.0); Monocyte# 0.53 X10^3/uL; Monocyte% 14.5 % (0-10); NRBC Flagged by Analyzer 0 % (0-5); Neutrophil # 2.66 X10^3/uL (2.7-7.7); Neutrophil % 72.7 % (47-70); POSITIVE DIFFERENTIAL YES; Platelet Count 210 K/mm3 (150-450); RBC Distribution Width CV 13.4 % (11.6-14.6); RBC Distribution Width SD 42.3 fl (35.1-43.9); Red Blood Count 4.02 M/mm3 (4.6-6.2); White Blood Count 3.7 K/mm3 (4.4-11.0)
[2022-08-26 15:41] LABS: Differential Indicated SCAN CRITERIA MET
[2022-08-26 15:53] LABS: Anion Gap 5 (5-15); BUN 19 mg/dL (7-18); BUN/Creat Ratio 18.8 RATIO (10-20); Calcium,Total 9.4 mg/dL (8.5-10.1); Chloride 105 mmol/L (98-107); Creatinine, Serum 1.01 mg/dL (0.70-1.30); EST Glomerular Filtration Rate 83 mL/min (>60); Est Glom Filt Rate - Afr Amer 100 mL/min (>60); Estimated Creatinine Clearance 83.71 ml/min; Glucose 208 mg/dL (74-106); Potassium 3.7 mmol/L (3.5-5.1); Sodium Level 139 mmol/L (136-145)
[2022-08-26 16:13] VITALS: BP 139/86; PULSE 74; RESP 15; O2SAT 99
[2022-08-26 16:13] LABS: Differential Comment SCANNED
[2022-08-26 16:21] VITALS: BP 139/86; PULSE 97; RESP 22; O2SAT 96
--- NOTE | 2022-08-26 17:07 | CON.PCM_ITS ---
Assessment & Plan Assessment/Plan (1) Dyspnea: PLAN: 52 year old male with multiple myeloma with progressive dyspnea, stridor -pre-radiation CT today (and PET/CT from 08/13) demonstrate 2x3cm hypopharyngeal / posterior pharyngeal wall vs posterior subglottic vs esophageal inlet collection. this is actually smaller today than it was on 08/13 on imaging. -patient poorly tolerates laryngoscopy - this was normal in the office a few weeks ago, before his PET/CT. scope exam today with a clear glottis, good motion of cords. unable to see hypopharynx or subglottis due to secretions and cooperation -discussed w/ dr pedroza here at [facility] - given the overall clinical picture, he will be transferred to [facility] for further managment. i had a long discussion with the patient and he agrees. HPI Consult Data Date of Consult: 08/26/22 HPI Narrative Reason for Consultation: stridor HPI Narrative: TIM JONES, is a 52 M who presents with 2 months of worsening dyspnea. me dical history significant for multiple myeloma, scheduled for upcoming treatment next week. he called the ENT office stating that he needed something for his breathing. he was seen a few weeks prior with normal in-office laryngoscopy and no turbulent airflow. he had a sim CT of the chest today for radiation planning that was not an official-read CT. it showed a 2 x 3 cm hypopharyngeal vs subgl ottic collection, given the limitations and absence of reformatting of the images. he was seen in the ED after he was instructed to come in. he has stridor at rest but no dyspnea. his voice is hoarse; however, he is comfortable. [facility] Medical History Acute bronchitis, unspecified Chronic lumbar pain Contact with or exposure to other viral diseases Cough Diabetes Encounter for education Encounter for preventative adult health care examination Encounter for screening colonoscopy High blood pressure Multiple myeloma in relapse Type 2 diabetes mellitus Vitamin B12 deficiency Home Medications dulaglutide 1.5 mg/0.5 mL subcutaneous pen injector (Trulicity) 1.5 mg (0.5 mL) subcut QWEEK #6 mL 12/12/21 [Rx Last Taken Unknown] dexamethasone 4 mg tablet 20 mg PO .weekly #20 tabs 07/29/22 [Rx Last Taken Unknown] lisinopril 10 mg tablet 10 mg PO DAILY 08/26/22 [History Last Taken Unknown] Allergy/AdvReac Type Severity Reaction Status Date / Time Penicillins Allergy Severe anaphylacti Verified 08/26/22 14:26 c Family History Father Diabetes Mother No problems noted. Social History household members: spouse housing: house Smoking Status: Never smoker Electronic Cigarette Use: not used second hand exposure: No alcohol intake: never substance use type: does not use what type of physical activity do you participate in: walking frequency: 1-2 times per week ROS ROS Narrative as per HPI Physical Exam Const alert General Appearance: cooperative Exam Limitations: no limitations HEENT normocephalic Nose: external nose normal Mouth: oral and palatal mucosa normal Throat: hoarseness and other Other Details: stridor without distress Eyes General Eye: normal appearance of both eyes Neck full ROM and no lymphadenopathy Lab / Micro Data Result Diagrams: 08/26/22 15:20 08/26/22 15:20 Labs: Laboratory Results - last 24 hr 08/26/22 15:20: WBC 3.7 L, RBC 4.02 L, Hgb 12.2 L, Hct 34.9 L, MCV 86.8, MCH 30.3, MCHC 35.0, RDW Std Deviation 42.3, RDW Coeff of Uziel 13.4, Plt Count 210, MPV 9.3, Immature Gran % (Auto) 0.500, Neut % (Auto) 72.7 H, Lymph % (Auto) 10.7 L, [place] % (Auto) 14.5 H, Eos % (Auto) 1.1, Baso % (Auto) 0.5, Absolute Neuts (auto) 2.7, Absolute Lymphs (auto) 0.39 L, Nucleated RBC % 0, Differential Comment SCANNED, Diff Path Review October08/26/22 15:20: Sodium 139, Potassium 3.7, Chloride 105, Carbon Dioxide 29.0, Anion Gap 5, BUN 19 H, Creatinine 1.01, Estim Creat Clear Calc 83.71, Est GFR (MDRD) Af Amer 100, Est GFR (MDRD) Non-Af 83, BUN/Creatinine Ratio 18.8, Glucose 208 H, Calcium 9.4
--- NOTE | 2022-08-26 17:21 | OP.PCM_ITS ---
Problems Associated Problem List Diagnoses (1) Dyspnea: Report of Operation Date of Procedure: 08/26/22 Pre-Operative Diagnosis: dyspnea Post-Operative Diagnosis: dyspnea Surgery/Procedure Performed:: flexible laryngoscopy Surgeon: Henry Bravo Type of Anesthesia: Local Description of Procedure: the flexible laryngoscope was introduced in the patients left nasal cavity. he had a large amount of nasopharyngeal secretions. the scope was advanced and the visualized glottis was crisp, bilateral normal cord motion. given his secret ions and cooperation and concern for worsening his airway, i was unable to see his postcricoid or subglottis. there were no complications.
[2022-08-26 17:23] VITALS: BP 156/96; PULSE 96; RESP 15; O2SAT 99
[2022-08-27 12:15] LABS: Pathologist Review Reviewed
== END 2022-08-26 17:38 | disposition short-term general hospital (02) ==
PROVIDERS: Emergency Provider Emergency Medicine; PCP Nurse Practitioner Family; Visit Provider Emergency Medicine
DX: J38.6 Stenosis of larynx (principal); C90.02 Multiple myeloma in relapse; E11.9 Type 2 diabetes mellitus without complications; R06.00 Dyspnea, unspecified; I10 Essential (primary) hypertension; Z79.899 Other long term (current) drug therapy
CPT/HCPCS: 31575; 80048; 85025; 96374; 99285

== ENCOUNTER 2023-05-23 15:00 | Outpatient (RCR) | payer BC, SELFPAY ==
--- NOTE | 2023-03-14 10:52 | HP.PTEVAL_ITS ---
Patient's Visit Information Visit Information Visit Information: TIM JONES is a 52 year old M referred to Physical Therapy by NENA RENTERIA with a diagnosis of Multiple Myleoma with Cord Compression. 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 In 2020 Fall- some response to tx- trach in august of this year- some response to tx- massive pain and cord compression- working with [facility]-Jan [id number] 5 rounds of radiation- tumor has shrunk- cord is aggravated- was at [facility]- was there until Feb 27- started new chemo which is wiping him out- and they are looking at new data- bone marrow biopsy friday- setting up PT around that- home is accessible- ramp into home- completely indep at home- goal is walking- fully indep with ADL's. When he was at the [facility] he can stand up against something or holding onto something for 20-30 min but then he gets fatigued. Falls are a significant concern- he has a significant concern for broken bones. He can get in/out of higher SUV's but he is challenged to get in/out of cars. Walked 75 feet with w/c follow- FWW. They are practicing at home. He is getting more sensation coming back. He has more fatigue discomfort if he puts it on a scale its a 1/10- they use lidocain patches that they time around therapy and gabapentin around therapy times. Objective Objective: Posture: FH, RS- can correct but does not maintain Gait: ataxic- wide FWW-gait belt- narrow base of support- does almost scissor at times- requires CGA- 50 feet- requires rest break and w/c follow Balance: weight shifts Transfers: sit to stand UE A ROM: WFL Sensation: diminished to LE gross touch Strength: Ankle: 4/5 throughout Left Extn: 31 Right Extn: 55 Left Flexion: 25 Right Flexion: 38 Core: poor Hip: Tested in Sitting Left Flexion: 5 Right Flexion: 13 Left Abd: 12 Right Abd: 23 Left Add: 18 Right Add: 30 Balance/Special Test Scores Lower Extremity Functional Score: 21 Goals Goal 1:: Patient will be I with HEP and progression Goal Time Frame: 12-16 Weeks Goal 2:: Patient will ambulate >300 feet with LRD and mod I Goal Time Frame: 12-16 Weeks Goal 3:: Patient will asc/desc 8 stairs recip with 2 HR Goal Time Frame: 12-16 Weeks Goal 4:: Patient will sit to stand with no UE A to LRD Goal Time Frame: 12-16 Weeks Goal 5:: Patient will demo equal strength bilateral LE Goal Time Frame: 12-16 Weeks Goal 6:: Patient will report 80% improvement Goal Time Frame: 12-16 Weeks Rehabilitation Potential Physical Therapy Diagnosis: Patient presents with hypomobility- he has decreased LE and core strength/stabilization, proprioception, flex and muscular endurance leading to decreased balance, transfers, abnormal gait and inability to perform normal ADL's. Anticipated Interventions Patient/Client Instruction: Educate patient on: Benefits of Fitness Program Therapeutic Exercise to Include: Strength training, Endurance training, Balance training, Coordination, Agility training, Body mechanics, Postural training, Flexibilty training, Gait and locomotor training, Neuromotor development, Dynamic Lumbar Stabilization and Scapular Strength/Stabilization Functional Training to Include: Gait training Text: Thank you for the opportunity to evaluate your patient. For Medicare and Medicare HMO plans, please review the plan of care and approve it. It will need to be FAXED BACK to us at [phone] for Medicare purposes. For Medicare only, by signing this I certify the plan of care. Please let me know if there are questions or concerns regarding this plan of care. Physician Kira howell: Date:
--- NOTE | 2023-03-31 16:28 | HP.PTREVAL_ITS ---
Re-Evaluation Intro: NENA RENTERIA, It has been my pleasure to treat TIM JONES over the last 2 visits for Multiple Myleoma with Cord Compression. Please see the progress note below for an update on the physical therapy plan of care! Subjective Subjective: Continuation of last session Objective Objective/Function: Continued collection of data from initial evaluation. -Sit to business support liaison 30 seconds: 8 with UE Assistance (Normal for Age: >17 without UE A) -TU seconds with Forward wheeled walker with contact guard assistance (Norm: <10 sec=free mobile without AD) -6 min walk test: 110 meters Forward wheeled walker with contact guard assistance - wheelchair follow- gait belt and one rest break (Norms: 572 meters without AD) -LOPEZ Balance Score: 36/56 (Norms: 21-40 medium fall risk and will require an assistive device) Plan Plan Plan: 2-3x a week for 8-12 weeks to focus on LE and core strength, proprioception and functional mobility to increase independence in his home and community 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 Pt very goal centered on ambulation GAIT BELT Balance/Gait/Functional tests Balance/Special Test Scores CATSIB Score (Max score 120 seconds): 92 Lower Extremity Functional Score: 21 Tug Test: >30sec.=impaired mobility Goals Goals Goal 1:: Patient will be I with HEP and progression Goal Time Frame: 12-16 Weeks Goal 2:: Patient will ambulate >300 feet with LRD and mod I Goal Time Frame: 12-16 Weeks Goal 3:: Patient will asc/desc 8 stairs recip with 2 HR Goal Time Frame: 12-16 Weeks Goal 4:: Patient will sit to stand with no UE A to LRD Goal Time Frame: 12-16 Weeks Goal 5:: Patient will demo equal strength bilateral LE Goal Time Frame: 12-16 Weeks Goal 6:: Patient will report 80% improvement Goal Time Frame: 12-16 Weeks Anticipated Interventions Anticipated Interventions Patient/Client Instruction: Educate patient on: Benefits of Fitness Program Therapeutic Exercise to Include: Strength training, Endurance training, Balance training, Coordination, Agility training, Body mechanics, Postural training, Fle xibilty training, Gait and locomotor training, Neuromotor development, Dynamic Lumbar Stabilization and Scapular Strength/Stabilization Functional Training to Include: Gait training Re-Evaluation Ending Re-evaluation ending: Please do not hesitate to contact me at [phone] by phone or if you have questions or concerns regarding this new plan of care! Sincerely, PREMA SuarezT
--- NOTE | 2023-04-21 15:46 | HP.PTREVAL ---
Re-Evaluation Intro: NENA RENTERIA, It has been my pleasure to treat TIM JONES over the last 7 visits for Multiple Myleoma with Cord Compression. Please see the progress note below for an update on the physical therapy plan of care! Subjective Subjective: Pt. report that he is slowly getting better, but does not feel like he is there yet. Objective Objective/Function: 30 sec sit to stand rep test: 10 without use of UEs TU sec with FWW, MMT: RLE: knee ext: 51.4#, flexion 38.4#, Hip(seated): flexion 28.1#, abd 23.7#, add 32.8# LLE: knee ext: 57.1#, flexion 39.9#; hip (seated): flexion 29.9#, abd 27.4#, add 31.8#. gait: Pt. was able to ambulate without AD, but has very unsteady gait, Pt. did not fall or have a LOB, but is very methodical and reports feeling very unsteady. Pt. will reach out for objects when available. GAIT with FWW; Pt. has much better stability, but still fatigues rapidly. Pt. was able to ambulate 321 feet with his FWW with occasional standing rest periods. Pt. completed with YOUNG. STAIRS: Pt. is able to complete with reciprocal pattern, but heavily uses AD and has marked weakness with controlled lowering. Pt. continues to fatigue rapidly resulting in decreased tolerance to all activities and ADLs. Dileep really needs to work on overall endurance and strengthening allowing for increased stability and safety with gait. Plan Plan Plan: I am requesting more visits. He really needs to work on his stability with gait allowing for increased safety at home. 1) CKC and functional strengthening of BLEs, 2) balance, wt shifting, SLS 3) gait progressing moving to least restrictive device. 4) stair negotaition 5) endurance progression Balance/Gait/Functional tests Balance/Special Test Scores CATSIB Score (Max score 120 seconds): 92 Lower Extremity Functional Score: 21 TUG Test Time Seconds: 41 Tug Test: >30sec.=impaired mobility 30 Second Chair Rise Test Seconds: 10 Goals Goals Goal 1:: Patient will be I with HEP and progression Goal Time Frame: 12-16 Weeks Goal Progress: Progressing Goal 2:: Patient will ambulate >300 feet with LRD and mod I (met on 04/21/23). NEW GOAL: 04/21/23: Pt. to complete 6 MWT indicating increased endurance and functional independence. Goal Time Frame: 12-16 Weeks Goal Progress: Progressing Goal 3:: Patient will asc/desc 8 stairs recip with 2 HR Goal Time Frame: 12-16 Weeks Goal Progress: Progressing Goal 4:: Patient will sit to stand with no UE A to LRD (MET). NEW GOAL: (04/21/23): Pt. to complete 30 second sit to stand rep rest with at least 18 reps indicating increased functional LE strength closer to age norms. Goal Time Frame: 12-16 Weeks Goal Progress: Progressing Goal 5:: Patient will demo equal strength bilateral LE Goal Time Frame: 12-16 Weeks Goal Progress: Progressing Goal 6:: Patient will report 80% improvement Goal Time Frame: 12-16 Weeks Goal Progress: Progressing Anticipated Interventions Anticipated Interventions Patient/Client Instruction: Educate patient on: Benefits of Fitness Program Therapeutic Exercise to Include: Strength training, Endurance training, Balance training, Coordination, Agility training, Body mechanics, Postural training, Flexibilty training, Gait and locomotor training, Neuromotor development, Dynamic Lumbar Stabilization and Scapular Strength/Stabilization Functional Training to Include: Gait training Re-Evaluation Ending Re-evaluation ending: Please do not hesitate to contact me at [phone] by phone or if you have questions or concerns regarding this new plan of care! Sincerely, Librado Busby DPT
== END 2023-05-23 19:00 | disposition home or self-care (01) ==
LOC: PT 15:00
PROVIDERS: PCP Nurse Practitioner Family
DX: C90.00 Multiple myeloma not having achieved remission (principal); G95.20 Unspecified cord compression
CPT/HCPCS: 97110; 97163; 97164; 97530